=== PATIENT | female | born 1950 | race Caucasian/White ===

== ENCOUNTER 2020-12-07 14:12 | Inpatient (IN) ==
[2020-12-07] MEDS ORDERED: HEPARIN (PORCINE) 1000 UNIT/ML 10 ML (CATH LAB USE ONLY) ONE ×2 (14:15→15:26)
[2020-12-07] MEDS ORDERED: NITROGLYCERIN/D5W 100MCG/ML 20ML SYR ONE (14:15)
[2020-12-07] MEDS ORDERED: niCARdipine HCL INJ 2.5 MG/ML 10 ML AMP ONE (14:15)
[2020-12-07] MEDS ORDERED: MIDAZOLAM HCL 1 MG/ML 2ML VIAL ONE (14:15)
[2020-12-07] MEDS ORDERED: fentaNYL citrate 100 MCG/2 ML VIAL ONE (14:15)
--- NOTE | 2020-12-07 14:26 | Emergency Department Note ---
History of Present Illness General Chief complaint: Heart Alert Time Seen by Provider: 12/07/20 14:16 Source: patient, family ( at the bedside) and RN notes reviewed Mode of arrival: EMS Limitations: no limitations History of Present Illness Provider complaint: Chest pain This patient is a 70-year-old female who presents to the emergency department by ambulance after complaining of dizziness, lightheadedness and chest pressure. Patient does have a history of heart attack and does have a stent placed. She is also had a TAVR. She has a history of Hodgkin's lymphoma as well as breast cancer but does not currently receive treatment. Patient states she is feeling improved after receiving aspirin and IV fentanyl in the ambulance. She complains of a pain a 0-1 at this time. A heart alert had been called by my medical command. Patient denies any recent illness, fever, cough, abdominal pain, vomiting or diarrhea. Home Medications Medication Instructions Recorded Confirmed Type ASPIRIN (ASPIRIN CHEWABLE) 81 mg PO DAILY #0 tab 12/10/11 History CALCIUM CARBONATE-VITAMIN D W/ 1 tab PO BID #0 tab 12/10/11 History (CALTRATE 600 PLUS) CLOPIDOGREL BISULFATE (PLAVIX) 75 mg PO DAILY #0 tab 12/10/11 History Doxepin (Doxepin *) 10 mg PO HS #0 cap 12/10/11 History IRON 25MG 1 tab PO DAILY #0 12/10/11 History SIMVASTATIN (Zocor) 40 mg PO QPM #0 tab 12/10/11 History CHOLECALCIFEROL (VITAMIN D 1000 2,000 inter.unit PO DAILY #0 cap 09/25/13 History UNIT) Famotidine (Pepcid) 20 mg PO BID #0 tab 09/25/13 History LOSARTAN POTASSIUM (COZAAR) 25 mg PO DAILY #0 tab 09/25/13 History Metoprolol Succ (Toprol Xl) 50 mg PO DAILY #30 tab 09/25/13 History (Toprol-Xl) Nitroglycerin (Nitrostat) 0.4 mg UT PRN #0 btl 09/25/13 History Allergies Allergy/AdvReac Type Severity Reaction Status Date / Time No Known Allergies Allergy Unverified 12/10/11 00:58 Past Med/Surg History Medical History Anemia Atrial fibrillation DCIS (ductal carcinoma in situ) of breast Diastolic heart failure Hodgkin's disease Osteopenia Pleural effusion Radiation fibrosis of lung Surgical History H/O splenectomy S/P right mastectomy S/P splenectomy Stented coronary artery Social History Smoking Status: Unknown if ever smoked Preferred Language: Malagasy Feels Safe at Home: Yes Review of Systems See HPI for pertinent positives & negatives. and A total of 10 systems reviewed and were otherwise negative Physical Exam Vital Signs Vital Signs - 24 hr 12/07/20 14:12 12/07/20 14:16 Pulse Rate 76 76 Pulse Rhythm Regular Pulse Strength Normal Respiratory Rate 20 Respiratory Effort / Characteristics Non-Labored Spontaneous Respiratory Depth Normal Respiratory Pattern Regular Blood Pressure 140/48 L Blood Pressure Mean 78 Blood Pressure Position Sitting Pulse Oximetry 96 96 Oxygen Delivery Method Room Air Room Air Sepsis Recent Fever Within 48 Hours No Sepsis New/Unexplained Change in Mental Status No Sepsis Action Taken by Nursing No Action Required Vital signs reviewed. General: Chronically ill-appearing 70 yo female, in no significant distress. Thin and frail HEENT: No scleral icterus, PERRLA, neck supple. Atraumatic. Cardiovascular: Regular rate and rhythm, occasional irregularity, no extra sounds. Pulmonary: Coarse breath sounds to auscultation bilaterally, normal work of breathing. Abdomen: Soft, nontender, nondistended, positive bowel sounds. Musculoskeletal: Atraumatic, no peripheral edema. Neurologic: Patient awake alert and oriented x 3. Skin: Warm, dry, no rash Medical Decision Making Differential Diagnosis Cardiac ischemia, aortic dissection, pulmonary embolism, pneumothorax, pneumonia, pericarditis, myocarditis, esophageal rupture, GERD, cholecystitis, pancreatitis, musculoskeletal, as well as other pathologies. Medical Records Attestation: I reviewed the patient's medical records. Home Medications Current Medication List: was personally reviewed by me Laboratory Data Attestation: I reviewed the patient's lab results. Lab Results 12/07/20 Range/Units 14:26 COVID-19 Eval Order Covid19 at [facility] ECG Data Attestation: I personally reviewed and interpreted this ECG as follows: Indication: + chest pain Rate (beats per minute): 76 Rhythm: + sinus rhythm and + other (Likely sinus pause) ECG Intervals/blocks: + First degree AV block and + Normal QT-c ECG [place]: + Normal ECG ST segments: + ST elevation (Inferior ST elevation) and + Nonspecific ST abnormalities (Reciprocal change in the anterior leads) ECG Findings: no PACs or no PVCs Blood Pressure Blood Pressure Findings: Elevated blood pressure Blood Pressure Disposition: further management by hospitalist BROWN Narrative This patient was evaluated and appeared to be in no significant distress. IV access was obtained and laboratory work was drawn. An order for cardiac monitoring was placed and the patient is noted to be in a sinus rhythm with a first-degree AV block at 76 bpm. The patient had been given aspirin and IV fentanyl prior to arrival which did alleviate her discomfort. She stated she was a 0-1 on the pain scale. EKG confirms an inferior ST elevation CT. Heart alert had been called prior to arrival and Dr. Mckeon from interventional cardiology did arrive at the bedside to evaluate the patient. Patient was taken to the catheterization lab for definitive management. Patient and were aware of the plan and agreed. Impression & Plan STEMI (ST elevation myocardial infarction) Discharge Plan Visit Data Chief Complaint: Heart Alert Discharge Problem: STEMI (ST elevation myocardial infarction) Discharge Instructions Interventions: ED Discharge Assessment Last Done: 12/07/20 14:27
--- NOTE | 2020-12-07 14:32 | Pre Anesthesia Assessment ---
Date of Service December 07, 2020 Pre Sedation Assessment Cardiovascular RRR, no murmur, no edema Respiratory normal respiratory effort, lungs clear to auscultation Pre-Sedation Airway Assessment Smoking Status: Unknown if ever smoked Hx Sleep Apnea: No Hx Difficult Intubation: No Short, Thick Neck: No Thyromental Distance: > or= 3.5 Finger Breadths Oral Cavity: + WNL Mallampati Class: III ASA: ASA4 Procedure Planning Contraindications for Sedation: none Current Medications Reviewed: Yes Notes The planned sedation has been discussed with the patient. Informed Consent was obtained. I have identified the patient, determined the appropriateness of sedation and have assessed the patient immediately prior to the procedure. All medicine(s) and interventions are by my order.
--- NOTE | 2020-12-07 14:36 | Cardiology Consultation ---
Date of Consultation December 07, 2020 Assessment & Plan (1) STEMI (ST elevation myocardial infarction): Presentation consistent with inferior STEMI and recommend proceeding with emergent cardiac catheterization and likely primary PCI. No apparent contraindications to procedure. Discussed risks, benefits, alternatives of procedure with patient and they are willing to proceed. Further recommendations pending findings of coronary angiography. History of Present Illness Attending Physician: Otis Mckeon MD History of Present Illness 70-year-old woman here with acute chest pain and ECG concerning for acute MS. Patient seen emergently in the ED after heart alert activated en route. Past cardiac history remarkable for coronary artery disease post multiple PCI to RCA (2011 2 overlapping Xience TODD to proximal/mid RCA at [facility], 2014 single resolute TODD to proximal RCA), severe aortic stenosis post 26 mm evolute CoreValve 03/2015 at [facility]. Cardiac risk factors include hypertension, dyslipidemia. Other medical issues include breast cancer post resection, GERD, iron deficiency anemia. Reports feeling unwell yesterday evening for approximately an hour. Went to bed and felt better this morning in usual state of health. This afternoon again started to feel unwell followed by chest pressure. Symptoms lasted approximately an hour before EMS called. ECG in the field showed sinus rhythm with inferior ST elevations. Largely chest pain-free at time of arrival. Hemodynamically stable. Inferior ST elevations persisted on hospital ECG. Allergies Allergy/AdvReac Type Severity Reaction Status Date / Time No Known Allergies Allergy Unverified 12/10/11 00:58 Home Medications Medication Instructions Recorded Confirmed Type ASPIRIN (ASPIRIN CHEWABLE) 81 mg PO DAILY #0 tab 12/10/11 History CALCIUM CARBONATE-VITAMIN D W/ 1 tab PO BID #0 tab 12/10/11 History (CALTRATE 600 PLUS) CLOPIDOGREL BISULFATE (PLAVIX) 75 mg PO DAILY #0 tab 12/10/11 History Doxepin (Doxepin *) 10 mg PO HS #0 cap 12/10/11 History IRON 25MG 1 tab PO DAILY #0 12/10/11 History SIMVASTATIN (Zocor) 40 mg PO QPM #0 tab 12/10/11 History CHOLECALCIFEROL (VITAMIN D 1000 2,000 inter.unit PO DAILY #0 cap 09/25/13 History UNIT) Famotidine (Pepcid) 20 mg PO BID #0 tab 09/25/13 History LOSARTAN POTASSIUM (COZAAR) 25 mg PO DAILY #0 tab 09/25/13 History Metoprolol Succ (Toprol Xl) 50 mg PO DAILY #30 tab 09/25/13 History (Toprol-Xl) Nitroglycerin (Nitrostat) 0.4 mg UT PRN #0 btl 09/25/13 History Patient History Medical History Anemia Atrial fibrillation DCIS (ductal carcinoma in situ) of breast Diastolic heart failure Hodgkin's disease Osteopenia Pleural effusion Radiation fibrosis of lung Surgical History H/O splenectomy S/P right mastectomy S/P splenectomy Stented coronary artery Social History Smoking Status: Never smoker Second Hand Exposure: No; Do You Dip or Chew Tobacco: No; Tobacco Cessation Education Requested by Patient: No Hx Alcohol Use: No Hx Substance Use: No Preferred Language: Nauruan Cathode Builder Required: No Beliefs That Will Affect Care: None Current Living Situation: Spouse Other Information That Helps Us Care for You: No Feels Safe at Home: Yes Safety Concerns: Feels Safe At This Time Review of Systems Review of Systems: Not completed in the setting of emergent situation Physical Exam Physical Exam: General: Comfortable HEENT: Sclerae anicteric Lungs: Clear to auscultation bilaterally Cardiac: Regular rate and rhythm, crisp bioprosthetic closure Vascular: 2+ radial Abdomen: Soft, nontender Extremities: Well perfused, no peripheral edema Neuro: Nonfocal Psych: Alert orient x3, normal affect and mood PG Care Time/CCT Total # of Minutes Spent Total Time Spent with Patient: Total time spent is greater than 50% in coordination of care (as documented) at patient's floor/unit and/or counseling patient: Coding Level of Care Code 37432 Initial Inpt Care Lvl 3 Diagnoses STEMI (ST elevation myocardial infarction) I21.3
[2020-12-07 15:09] LABS: Basophils # (auto) 0.09 K/uL (0-0.2); Basophils % (auto) 0.8 %; Eosinophils # (auto) 0.27 K/uL (0-0.5); Eosinophils % (auto) 2.3 %; Hematocrit (blood only) 31.2 % (37-47); Hemoglobin 9.6 g/dL (12.0-16.0); Immature Granulocytes # (auto) 0.02 K/uL (0.00-0.02); Immature Granulocytes % (auto) 0.2 %; Lymphocytes # (auto) 1.61 K/uL (1.2-3.4); Lymphocytes % (auto) 13.5 %; Mean Corpuscular Hemoglobin 28.3 pg (25-34); Mean Corpuscular Hgb Conc 30.8 g/dL (32-36); Monocytes # (auto) 0.67 K/uL (0.11-0.59); Monocytes % (auto) 5.6 %; Neutrophils # (auto) 9.23 K/uL (1.4-6.5); Neutrophils % (auto) 77.6 %; Platelet Count 382 K/uL (130-400); RDW Coefficient of Variation 14.1 % (11.5-14.5); RDW Standard Deviation 47.6 fL (36.4-46.3); Red Blood Count 3.39 M/uL (4.2-5.4); White Blood Count 11.89 K/uL (4.8-10.8)
[2020-12-07 15:17] LABS: Alanine Aminotransferase 25 U/L (12-78); Albumin Level 3.2 gm/dl (3.4-5.0); Aspartate Aminotransferase 24 U/L (15-37); BUN Creatinine Ratio 24.8 (10-20); Blood Urea Nitrogen 24 mg/dl (7-18); Calcium 9.2 mg/dl (8.5-10.1); Carbon Dioxide 26 mmol/L (21-32); Chloride 108 mmol/L (98-107); Creatinine Clr Calc Pharmacy 40.8 ml/min; Est GFR (African American) 67.3 ml/min; Glucose 150 mg/dl (70-99); Lipase 246 U/L (73-393); Magnesium 1.9 mg/dl (1.8-2.4); Potassium 4.3 mmol/L (3.5-5.1); Sodium 136 mmol/L (136-145)
[2020-12-07 15:24] LABS: Partial Thromboplastin Ratio 0.8; Prothrombin Time 9.8 Seconds (9.0-12.0)
[2020-12-07] MEDS ORDERED: NOREPINEPHRINE BITARTRATE 1 MG/ML 4 ML VIAL (CATH LAB USE ONLY) ONE (15:24)
[2020-12-07] MEDS ORDERED: DOPamine 400MG / 250ML D5W (Cath Lab Use ONLY) ONE (15:24)
[2020-12-07 15:28] LABS: Albumin Globulin Ratio 0.8 (0.9-2); Alkaline Phosphatase 55 U/L (45-117); Bilirubin,Total 0.3 mg/dl (0.2-1); Creatine Kinase 67 U/L (26-192); Globulin 3.9 gm/dl (2.5-4.0); Total Protein 7.1 gm/dl (6.4-8.2); Troponin I < 0.015 ng/ml (0-0.045)
[2020-12-07 15:36] LABS: Partial Thromboplastin Time < 20.0 Seconds (21.0-31.0)
[2020-12-07] MEDS ORDERED: CLOPIDOGREL BISULFATE 300 MG TAB ONE (16:31)
[2020-12-07] MEDS ORDERED: NITROGLYCERIN SL 0.4 MG/TAB TAB SL PRN (17:05)
[2020-12-07] MEDS ORDERED: ACETAMINOPHEN 325 MG TAB PO PRN (17:05)
[2020-12-07] MEDS ORDERED: ICU PROTOCOL FOR HYPERGLYCEMIA PRN (17:10)
--- NOTE | 2020-12-07 17:17 | Post Anesthesia Assessment ---
Date of Service December 07, 2020 Post Sedation Assessment Vital Signs Temp Pulse Pulse Resp BP BP Pulse Ox 12/07/20 17:03 97.3 F L 76 20 122/49 L 96 12/07/20 14:16 76 96 12/07/20 14:12 76 20 140/48 L 96 Recovery Score Activity: Moves 4 extremities Respiration: Deep Breath/Cough Circulation: +/-20% PreAnes Value Consciousness: Fully Awake Oxygen Saturation: O2 needed for >90% Discharge Sedation Level of Care: Fast Track Phase II Post Sedation Plan On clinical assessment, the patient appears to have tolerated the sedation without complications. Patient is recovering as anticipated. Patient will continue to be monitored by nursing and may be discharged when sedation discharge criteria are met per below protocol. Upon Completions of procedure up to 15 minutes continue every 5 minute vital signs and the P.A.R. score; then discharge to a Phase I or Fast Track to Phase II per the following guidelines: * Discharge Patient to appropriate Phase II area if PAR is 8 or greater or return to pre- procedure baseline. The post - procedure orders will be as directed. * If PAR score is less than 8 or not return to pre-procedure baseline then patient will follow Phase I monitoring till PAR is reached for Phase II. The Phase I may be done in procedure room or may call to secure a Phase I area. * If naloxone or flumazenil are used for reversal, hold in Phase I for continued monitoring from when last reversal dose was given for a minimum of 60 minutes or longer pending the nurse and/or physician discretion of patient condition before discharge to Phase II. Please call the Sedation Physician to re-evaluate and complete post-note for discharge to Phase II area. Do NOT discharge from procedure sedation or Phase 1 until post- sedation evaluation note is complete by procedure /sedation MD Sedation Discharge Instructions to be given to the patient at discharge to home.
--- NOTE | 2020-12-07 17:31 | Cardiac Catheterization ---
[facility] Data: Assisted Living Associate Cardiac Status Clinical evaluation leading to the procedure CAD Presenation: STEMI Anginal Classification: CCS IV Heart Failure: No Cardiogenic Shock within 24 Hours: No Cardiac Arrest within 24 Hours: No Imaging Studies Past 6 Months: No Stress Studies Past 6 Months: No Left Ventricular Angiography EF (%): 50-55 Wall Motion: Inferior Aortography Aortic Regurgitation: None Diagnostic Physicians Name: Otis Mckeon MD Status: Emergency Closure Device Percutaneous Entry Location: Radial Closure Device: Radial Band Recommendations: PCI without planned CABG PCI Indication: Immediate PCI for STEMI First Noted: First EKG Lesion Segment Name: proximal RCA Culprit Artery: Yes Stenosis Prior to Rx (%): 100 Chronic Total Occlusion: No IVUS: No FFR: No Pre-Procedure STEVE Flow: 0 Previously Treated Lesion: No Lesion Complexity: High/C Lesion Length (mm): 30 Thrombus Present: Yes Bifurcation Lesion: No Guidewire Across Lesion: Stenosis Post-Procedure (%): 0 Post-Procedure STEVE Flow: 3 Devices(s) Deployed: Yes Yes Intraprocedure Events Significant Disection: No Perforation: No Cardiac Cath Procedure Full Procedure Date December 07, 2020 Pre-Procedure Diagnosis Pre-Procedure Diagnosis: STEMI AUC Score AUC Score: 9 Post-Procedure Diagnosis Post-Procedure Diagnosis: Severe CAD and Successful PCI Procedure(s) Performed Procedure(s) Performed: Coronary Angiography, Left Heart Cath and Drug Eluting Stent Printed Circuit Board Panels Developer Otis Mckeon MD Right Of Way Buyer(s) [place] Estimated Blood Loss Estimated Blood Loss: 15 Medication(s) Medication(s): Clopidogrel, Fentanyl, Heparin, Lidocaine 1%, Nicardipine, Nitroglycerin and Versed Summary of Findings Indication: STEMI/Heart Alert History of prior PCI to RCA (2 TODD 2011, 1 TODD 2014) and prior TAVR with CoreValve. Here today with approximately 1 hour of chest pain and inferior ST elevations on ECG. Access: 6 Fr right radial artery Catheters: Leftdiagnostic JL 3.5 (unable to successfully cannulate). RightJR4, JL 3.5, AR-1. Able to successfully cannulate with MPA and guideliner Findings: Attempt made to cannulate left main initially unsuccessful with JL 3.5. Further attempts at selective imaging deferred post PCI due to amount of contrast administered. Nonselective images showed ossified, normal caliber left main that was widely patent. Medium caliber LAD widely patent to the apex. Small circumflex widely patent. RCA -dominant, downward takeoff, 50% ostial disease, 100% proximal occlusion within prior stents with significant thrombus extending throughout mid segment. LVEDP -5 LVEF 50 to 55% with inferior hypokinesis Post procedure aortography, no dissection, no significant AI -- PCI -- Antithrombotic therapy: Heparin, clopidogrel Procedure: RCA eventually cannulated with MPA guide and telescope support catheter V Belt Coverer 50 wire passed across lesion into distal vessel Mid RCA lesion predilated with 2.0 compliant balloon Initial attempts to stent were unsuccessful and mid RCA stents predilated with 3.0 balloon Distal aspect of mid RCA stent with residual stenosis and 3.0 x 12 mm [place] placed to mid RCA overlapping distal aspect of prior stents Stent post-dilated with stent balloon IC vasodilators administered for spasm Noted to have thrombus emboli to small right PLB RPLB rewired with corporation pilot 50 wire and gently ballooned with a 2.0 balloon. Minimal flow reestablished into small PLB. Wire removed and a post procedure images appear to be significant, flow-limiting stenosis at RCA ostium RCA recannulated with MPA guide, rewired with corporation pilot 50 wire. RCA ostium/proximal segment dilated with 2.5 balloon Additional 2.75 x 15 mm Nitin drug-eluting stent placed almost at ostium to proximal segment overlapping proximal aspect of prior stents. Stent postdilated with stent balloon to high atmospheres. Post procedure STEVE 3 flow, stents well expanded with minimal residual stenosis. Limited flow in small right PLB but patient chest pain-free. Arterial Closure: TR band Summary: 1. Inferior STEMI/100% proximal to mid RCA occlusion (very late stent thrombosis). 2. Minimal nonculprit vessel disease on nonselective imaging 3. Preserved LV function with inferior hypokinesis and normal intracardiac filling pressure. 4. Successful PCI of ostium to proximal RCA with 2.75 x 15 mm Nitin TODD overlapping proximal aspect of prior stent. 5. Successful PCI of latemid RCA with 3.0 x 12 mm Nitin TODD overlapping with distal aspect of prior mid RCA stent. Recommendations: Admit to ICU for continued monitoring Loaded with clopidogrel 600 mg in cath Continue dual-antiplatelet therapy for at least 1 year, consider extended therapy in the setting of overlapping stents. Trend troponins until peak, Check Echo Uptitrate beta-adolfo/ARB as BP allows High-dose statin Consult cardiac Rehab Hemodynamics Rest Ao:: 107/42/69 Final Ao: 144/52/88 LV: 108/5 Recommendations Recommendations: PCI without planned CABG Specimens Specimens: None Radiation Exposure (mGy) 2440 Contrast (mls) 160 Drains Drains: None Anesthesia Moderate [id number] Procedural Complication(s) None Disposition ICU I attest to the content of the Intraoperative Record and any orders documented therein. Any exceptions are noted below. [facility] Card Cath Procedure Codes Cardiac Catheterization Procedure 1: Cardiovascular Cath Procedures: 21024 Coronaries and LHC (+/-LV) Moderate Sedation Procedure 1: Sedation/Anesthesia: 20542 Mod Sedation by the same physician;Init15 Min Child Age 5 & Up Procedure 2: Sedation/Anesthesia: 02254 Mod Sedation by the same physician; Ea [id number] Minutes Stenting Procedure 1: Cardiovascular Stent Procedures: 61012 Perc transluminal revascularization of acute sub/total occl, aMI PG Care Time/CCT Total # of Minutes Spent Total Time Spent with Patient: Total time spent is greater than 50% in coordination of care (as documented) at patient's floor/unit and/or counseling patient:
[2020-12-07] MEDS: ONDANSETRON INJ 2 MG/ML 2 ML VIAL IV PRN (17:48)
[2020-12-07] MEDS: SODIUM CHLORIDE 0.9% 1000ML 1,000 ML IV SCH (17:50)
--- NOTE | 2020-12-07 18:02 | History & Physical Report ---
Date of Service December 07, 2020 Assessment & Plan (1) CAD (coronary artery disease): (2) STEMI (ST elevation myocardial infarction): Plan: -Admit to ICU -Patient presenting from home with reports of chest pain -Found to have acute ST elevations in the inferior leads, heart alert called and patient taken to [facility] emerg[facility] -History of CAD -TODD to RCA x 2 in 2014 -Patient was found to have RCA 100% proximal occlusion within prior stents with significant thrombus extending throughout mid segment and minimal nonculprit vessel disease. She received TODD x 2 to proximal and mid RCA. -TR band in place to right wrist, fingers cool to touch and blue discoloration noted to index finger, patient reports mild numbness, radial pulse palpable but weak - Dr. Mckeon notified -Resting echo -Aspirin, Plavix, statin, beta-adolfo, ARB (3) HTN (hypertension): Plan: -BP controlled -Home metoprolol increased to 25 mg twice daily and lisinopril changed to losartan by interventional cardiology (4) S/P TAVR (transcatheter aortic valve replacement): Plan: -in 2014 (5) DVT prophylaxis: Plan: -SCDs Admission and Anticipated Discharge Date Admission Date: December 07, 2020 History of Present Illness Chief Complaint: Chest pain Primary Care Provider: Tash Brownlee MD 70-year-old female with PMH CAD s/p TODD to RCA x 2 in 2014, aortic stenosis s/p TAVR, remote history of Hodgkin's lymphoma, remote history of breast cancer, chronic diastolic CHF, and other problems listed below who presents the ED for evaluation of chest pain. Patient reports that she was tosha some vegetables when she developed a midsternal chest pain. Reports associated nausea and diaphoresis. EMS was called and patient was brought to the ED for further evaluation. EKG showed inferior ST elevations. Heart alert was called and patient was taken to the [facility] emergently. Patient was found to have RCA 100% proximal occlusion within prior stents with significant thrombus extending throughout mid segment and minimal nonculprit vessel disease. She received TODD x 2 to proximal and mid RCA. Patient was evaluated in ICU post procedure. She reports that she is currently chest pain-free. Patient reports she felt very fatigued last evening. Otherwise has been feeling well recently. No other recent illnesses, fevers, chills. Denies shortness of breath. No lightheadedness, dizziness, syncopal event. Reports one episode of vomiting in the ambulance, no abdominal pain or diarrhea. Denies urinary symptoms. Allergies Allergy/AdvReac Type Severity Reaction Status Date / Time No Known Allergies Allergy Unverified 12/10/11 00:58 Home Medications Medication Instructions Recorded Confirmed Type ascorbic acid (vitamin C) 500 mg 500 mg PO DAILY 12/07/20 12/07/20 History tablet (Vitamin C) aspirin 81 mg tablet 81 mg PO DAILY 12/07/20 12/07/20 History cholecalciferol (vitamin D3) 25 25 mcg PO DAILY 12/07/20 12/07/20 History mcg (1,000 unit) tablet (Vitamin D3) cyanocobalamin (vitamin B-12) 1,000 mcg PO DAILY 12/07/20 12/07/20 History 1,000 mcg tablet doxepin 10 mg capsule 10 mg PO HS 12/07/20 12/07/20 History ferrous sulfate 325 mg (65 mg 325 mg PO DAILY 12/07/20 12/07/20 History iron) tablet lisinopril 20 mg tablet 20 mg PO DAILY 12/07/20 12/07/20 History metoprolol succinate 25 mg 25 mg PO DAILY 12/07/20 12/07/20 History tablet,extended release 24 hr simvastatin 40 mg tablet 40 mg PO HS 12/07/20 12/07/20 History Past Med/Surg History Medical History (Updated 12/07/20 @ 18:15 by JOSE G Urrutia) CAD (coronary artery disease) 2015-TODD to RCA x 2 DCIS (ductal carcinoma in situ) of breast Diastolic heart failure Hodgkin's disease HTN (hypertension) Malignant neoplasm of female breast (Unknown) "right breast 1989 apparently stage I disease mastectomy, no XRT, chemo, hormonal Rx " Osteopenia Radiation fibrosis of lung Surgical History (Updated 12/07/20 @ 18:21 by JOSE G Urrutia) H/O bilateral mastectomy H/O splenectomy S/P TAVR (transcatheter aortic valve replacement) Family History Mother Kidney disease Social History Smoking Status: Never smoker Second Hand Exposure: No; Do You Dip or Chew Tobacco: No; Tobacco Cessation Education Requested by Patient: No Hx Alcohol Use: No Hx Substance Use: No Preferred Language: Thai 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 Davis's addendum for full physical exam Musculoskeletal: TR band in place to right wrist, fingers cool to touch and blue discoloration noted to index finger, patient reports mild numbness, radial pulse palpable but weak Results & Data Results & Data ([facility]) Vital Signs (Past 12 Hours) Vital Signs Temp Pulse Pulse Resp BP BP Pulse Ox 12/07/20 17:28 77 21 116/52 L 98 12/07/20 17:13 77 22 125/58 L 95 12/07/20 17:03 36.3 C L 76 20 122/49 L 96 12/07/20 14:16 76 96 12/07/20 14:12 76 20 140/48 L 96 Laboratory Results Short CBC 12/07/20 Range/Units 14:18 WBC 11.89 H (4.8-10.8) K/uL Hgb 9.6 L (12.0-16.0) g/dL Hct 31.2 L (37-47) % Plt Count 382 (130-400) K/uL BMP 12/07/20 14:18 Sodium 136 Potassium 4.3 Chloride 108 H Carbon Dioxide 26 BUN 24 H Creatinine 0.98 Glucose 150 H Calcium 9.2 Cardiac Enzymes 12/07/20 Range/Units 14:18 Total Creatine Kinase 67 (26-192) U/L CK-MB (CK-2) 2.0 (0.5-3.6) ng/ml Troponin I < 0.015 (0-0.045) ng/ml Liver Function 12/07/20 Range/Units 14:18 Total Bilirubin 0.3 (0.2-1) mg/dl AST 24 (15-37) U/L ALT 25 (12-78) U/L Alkaline Phosphatase 55 (45-117) U/L Albumin 3.2 L (3.4-5.0) gm/dl Code Status & VTE Plan VTE Prophylaxis Plan VTE Prophylaxis will be ordered: Yes Supervising Physician Co-Signing Physician Notes Patient is a 70-year-old female with history of coronary artery disease, aortic stenosis S/P TAVR, Hodgkin's lymphoma, diastolic heart failure and other medical problems presents with history of retrosternal chest pain, nonradiating, associated with diaphoresis, nausea. Patient was found to have ST elevation NM on EKG. Patient had an emergent cardiac catheterization which showed 100% proximal/mid RCA occlusion. Patient underwent successful PCI with 2 drug- eluting stents to ostium/proximal RCA, mid RCA. Patient is doing well post procedure. Chest pain completely resolved. Denies any nausea, vomiting, dyspnea, dizziness. Physical Exam: Vitals signs as noted above General Appearance:Moderately built and nourished, no apparent distress Head: normocephalic, Atraumatic Eyes: normal inspection, EOMI Neck: supple, Trachea midline Respiratory/Chest: Normal breath sounds, CTA, No accessory muscle use, +B/L Mastectomy Cardiovascular: S1, S2, No murmur Abdomen/GI:Soft, Non tender, Bowel sounds present Extremities/Musculoskeletal:normal inspection, no edema Neurologic/Psych:AAOX3, grossly no focal neurological deficits Skin: normal color, warm, Well healed post surgical scars STEMI S/P PCI Check resting echo Continue aspirin, Plavix, Lipitor Check lipid panel, HbA1c Continue metoprolol, losartan Appreciate Cardiology input I personally reviewed the record. Patient is interviewed and examined at bedside. Patient's care is coordinated with Ruthie Najera HIGH SCHOOL HISTORY TEACHER. Please refer to the documentation above for details of patient's presentation and for discussion of other issues. (1) STEMI (ST elevation myocardial infarction) Involved coronary artery: unspecified coronary artery Qualified Code(s): I21.3 - ST elevation (STEMI) myocardial infarction of unspecified site
--- NOTE | 2020-12-07 19:53 | Critical Care Consultation ---
Date of Consultation December 07, 2020 Assessment & Plan (1) STEMI (ST elevation myocardial infarction): Impression: 70-year-old female presents to the ICU following inferior STEMI status post successful PCI with TODD x2 to the RCA Neuro - [facility] ICU: Negative Cardiac - STEMIinferior ST elevations on initial EKG, now s/p TODD x2 to the proximal and mid RCA -Monitor in ICU overnight -Follow-up echo -ASA, Plavix, statin, beta-adolfo, ARB -Follow-up cardiology recommendations -Trend troponins to peak HTNcontinue MTP, losartan Respiratory - Currently maintaining oxygen saturation on room air GI - Heart healthy diet RENAL/LYTES - [] - Strict I's and O ENDO - No history of diabetes or thyroid disease ICU hyperglycemic protocol HEME - H&H stable, monitor routine CBC ID - No indication for infectious process at this time LINES/IV ACCESS - Peripheral IVs DVT PROPHYLAXIS - SCDs Thank you for allowing us to participate in the care of this patient. Please refer to my attending physician's documentation for any further recommendations. (2) CAD (coronary artery disease): (3) DVT prophylaxis: (4) HTN (hypertension): (5) S/P TAVR (transcatheter aortic valve replacement): (6) Osteoporosis: (7) Dyslipidemia: (8) GERD (gastroesophageal reflux disease): History of Present Illness Attending Physician: Stanislav Davis MD History of Present Illness Patient is a 70-year-old female with past medical history CAD s/p TODD to the RCA x2 in 2014, aortic stenosis s/p TAVR, remote history of Hodgkin's lymphoma, remote history of breast cancer s/p bilateral mastectomy, chronic diastolic heart failure, HTN, GERD, and radiation fibrosis of the lung. Patient presented to the emergency department via EMS this afternoon with symptoms of dizziness, chest pressure, nausea, and diaphoresis which started approximately an hour prior to arrival. She was noted to have inferior ST elevations in route on ECG. Heart alert was initiated patient was taken to the [facility] where she was found to have inferior STEMI with 100% occlusion of the mid RCA. She underwent successful PCI of ostium/proximal RCA x1 and successful PCI of the late mid RCA x1. Patient now presents to the ICU post cath for further monitoring and management. On arrival to the ICU the patient is alert and oriented and denies current chest pain, palpitations, dizziness, syncope, diaphoresis, shortness of breath, nausea or vomiting, abdominal pain, or swelling in hands and feet. Prior to this event she states that she was otherwise in her usual state of health and denies recent illness. Allergies Allergy/AdvReac Type Severity Reaction Status Date / Time No Known Allergies Allergy Unverified 12/10/11 00:58 Home Medications Medication Instructions Recorded Confirmed Type ascorbic acid (vitamin C) 500 mg 500 mg PO DAILY 12/07/20 12/07/20 History tablet (Vitamin C) aspirin 81 mg tablet 81 mg PO DAILY 12/07/20 12/07/20 History cholecalciferol (vitamin D3) 25 25 mcg PO DAILY 12/07/20 12/07/20 History mcg (1,000 unit) tablet (Vitamin D3) cyanocobalamin (vitamin B-12) 1,000 mcg PO DAILY 12/07/20 12/07/20 History 1,000 mcg tablet doxepin 10 mg capsule 10 mg PO HS 12/07/20 12/07/20 History ferrous sulfate 325 mg (65 mg 325 mg PO DAILY 12/07/20 12/07/20 History iron) tablet lisinopril 20 mg tablet 20 mg PO DAILY 12/07/20 12/07/20 History metoprolol succinate 25 mg 25 mg PO DAILY 12/07/20 12/07/20 History tablet,extended release 24 hr simvastatin 40 mg tablet 40 mg PO HS 12/07/20 12/07/20 History Patient History Medical History (Updated 12/07/20 @ 21:12 by JOSE G Jacques) CAD (coronary artery disease) 2014-TODD to RCA x 2 DCIS (ductal carcinoma in situ) of breast Diastolic heart failure Hodgkin's disease HTN (hypertension) Malignant neoplasm of female breast (Unknown) "right breast 1989 apparently stage I disease mastectomy, no XRT, chemo, hormonal Rx " Osteopenia Radiation fibrosis of lung Surgical History (Updated 12/07/20 @ 18:21 by JOSE G Urrutia) H/O bilateral mastectomy H/O splenectomy S/P TAVR (transcatheter aortic valve replacement) Family History Mother Kidney disease Social History Smoking Status: Never smoker Second Hand Exposure: No; Do You Dip or Chew Tobacco: No; Tobacco Cessation Education Requested by Patient: No Hx Alcohol Use: No Hx Substance Use: No Preferred Language: Turkish 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 Beliefs That Will Affect Care: None Current Living Situation: Spouse Other Information That Helps Us Care for You: No Feels Safe at Home: Yes Safety Concerns: Feels Safe At This Time Review of Systems Review of Systems: All systems reviewed & are unremarkable except as noted in HPI & below Physical Exam Constitutional: WD/WN, vitals as above Eyes: PERRL, conjunctivae normal, anicteric sclerae ENMT: external ear and nose normal, oropharynx normal Neck: trachea midline, no thyromegaly Respiratory: normal respiratory effort, lungs clear to auscultation Cardiovascular: RRR, no murmur, no edema Gastrointestinal (Abdomen): normal bowel sounds, soft, nontender, no hepatosplenomegaly Musculoskeletal: no cyanosis or clubbing, extremities motor strength 5/5 Skin: no rashes, warm and dry Neurologic: PERRL, EOMI, accommodation nl, no face palsy, no dysarthria Psychiatric: A+Ox3, euthymic affect Results & Data Results & Data ([facility]) Vital Signs (Past 12 Hours) Vital Signs Temp Pulse Pulse Resp BP BP Pulse Ox 12/07/20 18:44 91 H 28 H 141/47 H 96 12/07/20 18:28 93 H 21 80/62 L 99 12/07/20 18:14 36 C L 92 H 29 H 128/80 96 12/07/20 17:58 81 17 113/53 L 98 12/07/20 17:43 89 23 135/112 H 96 12/07/20 17:28 77 21 116/52 L 98 12/07/20 17:13 77 22 125/58 L 95 12/07/20 17:03 36.3 C L 76 20 122/49 L 96 12/07/20 14:16 76 96 12/07/20 14:12 76 20 140/48 L 96 Coding Level of Care Code 69208 Inpt Consult Level 3 Diagnoses CAD (coronary artery disease) I25.10 DVT prophylaxis Z29.9 HTN (hypertension) I10 S/P TAVR (transcatheter aortic valve replacement) Z95.2 Osteoporosis M81.0 Dyslipidemia E78.5 STEMI (ST elevation myocardial infarction) I21.3 Involved coronary artery: unspecified coronary artery GERD (gastroesophageal reflux disease) K21.9 (1) STEMI (ST elevation myocardial infarction) Involved coronary artery: unspecified coronary artery Qualified Code(s): I21.3 - ST elevation (STEMI) myocardial infarction of unspecified site
[2020-12-07] MEDS: METOPROLOL TARTRATE 25 MG TAB PO SCH (20:51)
[2020-12-07] MEDS: DOXEPIN HCL 10 MG CAPSULE PO SCH (20:51)
[2020-12-08] MEDS: SODIUM CHLORIDE 0.9% 1000ML 1,000 ML IV SCH (04:01)
[2020-12-08 05:03] LABS: Basophils # (auto) 0.04 K/uL (0-0.2); Basophils % (auto) 0.4 %; Eosinophils # (auto) 0.08 K/uL (0-0.5); Eosinophils % (auto) 0.9 %; Hematocrit (blood only) 31.2 % (37-47); Hemoglobin 9.5 g/dL (12.0-16.0); Immature Granulocytes # (auto) 0.02 K/uL (0.00-0.02); Immature Granulocytes % (auto) 0.2 %; Lymphocytes # (auto) 1.17 K/uL (1.2-3.4); Lymphocytes % (auto) 12.9 %; Mean Corpuscular Hgb Conc 30.4 g/dL (32-36); Mean Platelet Volume 10.2 fL (7.4-10.4); Monocytes # (auto) 0.76 K/uL (0.11-0.59); Monocytes % (auto) 8.4 %; Neutrophils # (auto) 7.02 K/uL (1.4-6.5); Neutrophils % (auto) 77.2 %; Platelet Count 327 K/uL (130-400); RDW Coefficient of Variation 14.3 % (11.5-14.5); RDW Standard Deviation 48.6 fL (36.4-46.3); Red Blood Count 3.39 M/uL (4.2-5.4); White Blood Count 9.09 K/uL (4.8-10.8)
[2020-12-08] MEDS: ONDANSETRON INJ 2 MG/ML 2 ML VIAL IV PRN (05:14)
[2020-12-08 05:28] LABS: BUN Creatinine Ratio 23.1 (10-20); Blood Urea Nitrogen 23 mg/dl (7-18); Calcium 8.8 mg/dl (8.5-10.1); Carbon Dioxide 24 mmol/L (21-32); Chloride 110 mmol/L (98-107); Creatinine Clr Calc Pharmacy 36.7 ml/min; Est GFR (African American) 64.9 ml/min; Glucose 109 mg/dl (70-99); Sodium 137 mmol/L (136-145)
[2020-12-08 05:41] LABS: Chol HDL Ratio 2; Cholesterol 120 mg/dl (0-200); HDL Cholesterol 60 mg/dl; LDL Cholesterol Direct 39 mg/dl; Phosphorus 2.8 mg/dl (2.5-4.9); Triglycerides 167 mg/dl (0-150); VLDL Cholesterol 33 mg/dl
[2020-12-08 07:28] LABS: Estimated Average Glucose 88 mg/dl; Hemoglobin A1C 4.7 % (4.5-5.6)
--- NOTE | 2020-12-08 08:59 | Critical Care Progress Note ---
Date of Service December 08, 2020 Assessment & Plan (1) STEMI (ST elevation myocardial infarction): Plan: Impression: 70-year-old female presents to the ICU following inferior STEMI status post successful PCI with TODD x2 to the RCA Neuro - [facility] ICU: Negative Cardiac - STEMIinferior ST elevations on initial EKG, now s/p TODD x2 to the proximal and mid RCA -Monitor in ICU overnight -Follow-up echo -ASA, Plavix, statin, beta-adolfo, ARB -Follow-up cardiology recommendations -Trend troponins to peak HTNcontinue MTP, losartan Respiratory - Currently maintaining oxygen saturation on room air GI - Heart healthy diet RENAL/LYTES - no issues at present - Strict I's and O ENDO - No history of diabetes or thyroid disease ICU hyperglycemic protocol HEME - H&H stable, monitor routine CBC ID - No indication for infectious process at this time LINES/IV ACCESS - Peripheral IVs DVT PROPHYLAXIS - SCDs Stable for transfer to the floor with telemetry. (2) CAD (coronary artery disease): (3) DVT prophylaxis: (4) HTN (hypertension): (5) S/P TAVR (transcatheter aortic valve replacement): (6) Osteoporosis: (7) Dyslipidemia: (8) GERD (gastroesophageal reflux disease): Admission and Anticipated Discharge Date Admission Date: December 07, 2020 Subjective No acute events overnight. Patient denies chest pain, fevers, chills or night sweats. 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 She is concerned whether she has another pleural effusion. She denies any shortness of breath. Review of Systems Review of Systems: All systems reviewed & are unremarkable except as noted in HPI & below Physical Exam Constitutional: WD/WN, vitals as above Eyes: PERRL, conjunctivae normal, anicteric sclerae ENMT: external ear and nose normal, oropharynx normal Neck: trachea midline, no thyromegaly Respiratory: normal respiratory effort, lungs clear to auscultation Cardiovascular: RRR, no murmur, no edema Gastrointestinal (Abdomen): normal bowel sounds, soft, nontender, no hepatosplenomegaly Musculoskeletal: no cyanosis or clubbing, extremities motor strength 5/5 Skin: no rashes, warm and dry Neurologic: PERRL, EOMI, accommodation nl, no face palsy, no dysarthria Psychiatric: A+Ox3, euthymic affect Results & Data Results & Data ([facility]) Vital Signs (Past 12 Hours) Vital Signs Temp Pulse Resp BP Pulse Ox 12/08/20 06:13 85 24 147/58 H 95 12/08/20 05:43 87 25 H 151/69 H 95 12/08/20 05:13 85 24 147/64 H 94 12/08/20 04:43 82 25 H 132/58 L 98 12/08/20 04:13 97.5 F L 83 24 147/69 H 97 12/08/20 03:43 84 24 153/63 H 96 12/08/20 03:13 83 23 133/56 L 96 12/08/20 02:43 81 24 129/60 95 12/08/20 02:13 83 24 129/66 94 12/08/20 01:43 84 27 H 127/58 L 97 12/08/20 01:13 82 23 130/51 L 96 12/08/20 00:43 82 22 116/59 L 95 12/08/20 00:13 81 24 113/48 L 95 12/08/20 00:00 82 12/07/20 23:43 80 25 H 114/45 L 100 12/07/20 23:13 131/61 12/07/20 22:43 83 23 140/64 97 12/07/20 22:13 97.5 F L 85 22 150/65 H 98 12/07/20 21:58 85 22 144/61 H 99 12/07/20 21:43 88 25 H 143/64 H 98 12/07/20 21:28 87 22 143/55 H 98 12/07/20 21:13 89 24 140/54 L 97 12/07/20 20:58 88 23 108/67 89 L vital signs, labs and imaging personally reviewed Coding Level of Care Code 22224 Subseq Hosp Care Lvl 2 Diagnoses STEMI (ST elevation myocardial infarction) I21.3 Involved coronary artery: unspecified coronary artery CAD (coronary artery disease) I25.10 DVT prophylaxis Z29.9 HTN (hypertension) I10 S/P TAVR (transcatheter aortic valve replacement) Z95.2 Osteoporosis M81.0 Dyslipidemia E78.5 GERD (gastroesophageal reflux disease) K21.9 (1) STEMI (ST elevation myocardial infarction) Involved coronary artery: unspecified coronary artery Qualified Code(s): I21.3 - ST elevation (STEMI) myocardial infarction of unspecified site
[2020-12-08] MEDS ORDERED: LOSARTAN POTASSIUM 25 MG TAB PO SCH (09:00)
[2020-12-08] MEDS: CLOPIDOGREL BISULFATE 75 MG TAB PO SCH (09:04)
[2020-12-08] MEDS: PANTOprazole 40 MG TAB PO SCH (09:04)
[2020-12-08] MEDS: CHOLECALCIFEROL 1,000 UNITS 25 MCG TAB PO SCH (09:04)
[2020-12-08] MEDS: METOPROLOL TARTRATE 25 MG TAB PO SCH ×2 (09:04→20:22)
[2020-12-08] MEDS: ATORVASTATIN 40 MG TAB PO SCH (09:04)
[2020-12-08] MEDS: ASPIRIN 81 MG ECTAB PO SCH (09:04)
[2020-12-08] MEDS: FERROUS SULFATE 325 MG TAB PO SCH (09:04)
[2020-12-08] MEDS: CYANOCOBALAMIN 500 MCG TABLET (VITAMIN B-12) PO SCH (09:05)
--- NOTE | 2020-12-08 12:10 | Cardiology Consultation ---
Date of Consultation December 08, 2020 Assessment & Plan (1) STEMI (ST elevation myocardial infarction): s/p PCI TODD x 2 to the RCA. Echocardiogram reveals mild inferior, inferoseptal hypokinesis, right ventricular chamber size and moderate diffuse right ventricular hypokinesis suggestive of RV involvement. EKG performed this morning reveals subtle residual inferior ST elevation in leads III and aVF, however much improved compared to the initial tracing performed prior to cardiac catheterization yesterday. Subtle ongoing lateral ST elevation noted. Nonobstructive disease noted in the left coronary system on nonselective angiography. LVEF 45 to 50%. Not volume overloaded on exam. Continue aspirin, clopidogrel, metoprolol tartrate, atorvastatin. (2) S/P TAVR (transcatheter aortic valve replacement): Echocardiogram reveals normal prosthetic function. (3) HTN (hypertension): Systolic blood pressure had been in the 140s to 150s overnight, most recent measurements have been 121/54 and 98/68. With noted concerns of low blood pressure, and also mild hyperkalemia, losartan has been held. Of note as an outpatient she is on lisinopril 20 mg daily. (4) Hyperkalemia: SHAUN/ARB, on hold given mild hyperkalemia, 5 mmol, repeat potassium level tomorrow. (5) Dyslipidemia: Continue atorvastatin. (6) Pleural effusion: History of nonmalignant recurrent right pleural effusion for which patient has had multiple thoracentesis procedures, both at [facility] , and [facility] in the past. Update CXR. History of Present Illness Attending Physician: Stanislav Davis MD History of Present Illness Poonamtyron Mckeon is a 70 year old female seen in general cardiology consultation per the request of JOSE G Urrutia to assume care given patient's presentation with an inferior STEMI. The patient typically follows as an outpatient with JOSE G Garland of [facility]. She presented yesterday 12/08/2020 with several hours of fleeting generalized weakness, without alina chest discomfort. She did note shortness of breath. Prehospital, EMS identified inferior ST segment elevation, and the "Heart Alert" protocol was activated after communication between EMS and the emergency department. The patient underwent emergent cardiac catheterization performed yesterday by Dr. Mckeon of interventional cardiology with findings of 50% ostial stenosis of the right coronary artery, and a 100% proximal occlusion within the prior stents with significant thrombus extending throughout the mid segment. The patient underwent complex PCI of the ostium RCA to proximal RCA and placement of a 2.75 x 15 mm Marion drug-eluting stent overlapping the proximal portion of the previously placed stent. Successful PCI of mid RCA with a 3 x 12 mm Marion drug-eluting stent t hat overlapped with the distal aspect of the prior mid RCA stent. Patient feels well post procedure. Telemetry overnight last night and thus far today reveals sinus rhythm in the 80s to 90s, with no ventricular arrhythmias. She denies any symptoms suggestive of angina. Problem List: 1. Hx of severe AV stenosis -s/p TAVR (#26mm Medtronic Evolute at [facility] in 2014) 2. CAD -s/p PCI w/ TODD-prox RCA (3.0x12mm Resolute TODD at [facility] in 12/2014) 3. Hx of Non-Hodgkins Lymphoma -s/p mantle radiation and splenectomy in 4. 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 Chronic anemia 6. Recurrent pleural effusions -s/p multiple Rt sided thoracenteses Allergies Allergy/AdvReac Type Severity Reaction Status Date / Time No Known Allergies Allergy Unverified 12/10/11 00:58 Home Medications Medication Instructions Recorded Confirmed Type ascorbic acid (vitamin C) 500 mg 500 mg PO DAILY 12/07/20 12/07/20 History tablet (Vitamin C) aspirin 81 mg tablet 81 mg PO DAILY 12/07/20 12/07/20 History cholecalciferol (vitamin D3) 25 25 mcg PO DAILY 12/07/20 12/07/20 History mcg (1,000 unit) tablet (Vitamin D3) cyanocobalamin (vitamin B-12) 1,000 mcg PO DAILY 12/07/20 12/07/20 History 1,000 mcg tablet doxepin 10 mg capsule 10 mg PO HS 12/07/20 12/07/20 History ferrous sulfate 325 mg (65 mg 325 mg PO DAILY 12/07/20 12/07/20 History iron) tablet lisinopril 20 mg tablet 20 mg PO DAILY 12/07/20 12/07/20 History metoprolol succinate 25 mg 25 mg PO DAILY 12/07/20 12/07/20 History tablet,extended release 24 hr simvastatin 40 mg tablet 40 mg PO HS 12/07/20 12/07/20 History Patient History Medical History (Updated 12/08/20 @ 12:18 by Que Morrison, DO) CAD (coronary artery disease) 2015-TODD to RCA x 2 DCIS (ductal carcinoma in situ) of breast Diastolic heart failure Hodgkin's disease HTN (hypertension) Malignant neoplasm of female breast (Unknown) "right breast 1989 apparently stage I disease mastectomy, no XRT, chemo, hormonal Rx " Osteopenia Radiation fibrosis of lung Surgical History (Updated 12/07/20 @ 18:21 by JOSE G Urrutia) H/O bilateral mastectomy H/O splenectomy S/P TAVR (transcatheter aortic valve replacement) Family History Mother Kidney disease Social History Smoking Status: Never smoker Second Hand Exposure: No; Hx Alcohol Use: No Hx Substance Use: No Preferred Language: [place] Citizen Communication Ability: Effective Handstitching Machine Collar Feller Required: No Beliefs That Will Affect Care: None marital status: Current Living Situation: Spouse Feels Safe at Home: Yes Assistive Devices: None Review of Systems Review of Systems: All systems reviewed & are unremarkable except as noted in HPI & below Physical Exam Physical Exam: Temp Pulse Resp BP Pulse Ox 36.8 C 95 H 23 98/68 L 97 12/08/20 08:00 12/08/20 10:04 12/08/20 10:04 12/08/20 10:04 12/08/20 10:04 Constitutional: WD/WN, vitals as above not ill appearing Respiratory: normal respiratory effort, lungs clear to auscultation Cardiovascular: RRR, no murmur, no edema Vessels: no JVD Right radial artery access site clean dry and intact, no hematoma. Neurologic: PERRL, EOMI, accommodation nl, no face palsy, no dysarthria Results & Data ([facility]) Vital Signs (Past 12 Hours) Vital Signs Temp Pulse Pulse Resp BP BP Pulse Ox 12/08/20 10:04 95 H 23 98/68 L 97 12/08/20 09:13 99 H 22 121/54 L 96 12/08/20 08:13 97 H 21 104/42 L 96 12/08/20 08:00 36.8 C 90 12/08/20 06:58 86 31 H 135/71 95 12/08/20 06:13 85 24 147/58 H 95 12/08/20 05:43 87 25 H 151/69 H 95 12/08/20 05:13 85 24 147/64 H 94 12/08/20 04:43 82 25 H 132/58 L 98 12/08/20 04:13 36.4 C L 83 24 147/69 H 97 12/08/20 03:43 84 24 153/63 H 96 12/08/20 03:13 83 23 133/56 L 96 12/08/20 02:43 81 24 129/60 95 12/08/20 02:13 83 24 129/66 94 12/08/20 01:43 84 27 H 127/58 L 97 12/08/20 01:13 82 23 130/51 L 96 12/08/20 00:43 82 22 116/59 L 95 12/08/20 00:13 81 24 113/48 L 95 Laboratory Results Cardiac Enzymes 12/07/20 12/07/20 12/08/20 Range/Units 14:18 23:39 04:38 AST 24 (15-37) U/L CK-MB (CK-2) 2.0 (0.5-3.6) ng/ml Troponin I < 0.015 28.100 H* 29.600 H* (0-0.045) ng/ml 12/08/20 Range/Units 10:25 AST (15-37) U/L CK-MB (CK-2) (0.5-3.6) ng/ml Troponin I 28.200 H* (0-0.045) ng/ml Coagulation 12/07/20 Range/Units 14:18 PT 9.8 (9.0-12.0) Seconds APTT < 20.0 L (21.0-31.0) Seconds Lipids 12/08/20 Range/Units 04:38 Triglycerides 167 H (0-150) mg/dl Cholesterol 120 (0-200) mg/dl HDL Cholesterol 60 mg/dl Cholesterol/HDL Ratio 2 CBC 12/07/20 12/08/20 Range/Units 14:18 04:38 WBC 11.89 H 9.09 (4.8-10.8) K/uL RBC 3.39 L 3.39 L (4.2-5.4) M/uL Hgb 9.6 L 9.5 L (12.0-16.0) g/dL Hct 31.2 L 31.2 L (37-47) % Plt Count 382 327 (130-400) K/uL Neut # (Auto) 9.23 H 7.02 H (1.4-6.5) K/uL Lymph # (Auto) 1.61 1.17 L (1.2-3.4) K/uL [place] # (Auto) 0.67 H 0.76 H (0.11-0.59) K/uL Eos # (Auto) 0.27 0.08 (0-0.5) K/uL Baso # (Auto) 0.09 0.04 (0-0.2) K/uL Comprehensive Metabolic Panel 12/07/20 12/08/20 Range/Units 14:18 04:38 Sodium 136 137 (136-145) mmol/L Potassium 4.3 5.0 D (3.5-5.1) mmol/L Chloride 108 H 110 H (98-107) mmol/L Carbon Dioxide 26 24 (21-32) mmol/L BUN 24 H 23 H (7-18) mg/dl Creatinine 0.98 1.01 (0.6-1.2) mg/dl Glucose 150 H 109 H (70-99) mg/dl Calcium 9.2 8.8 (8.5-10.1) mg/dl AST 24 (15-37) U/L ALT 25 (12-78) U/L Alkaline Phosphatase 55 (45-117) U/L Total Protein 7.1 (6.4-8.2) gm/dl Albumin 3.2 L (3.4-5.0) gm/dl Intake and Output 12/07/20 12/08/20 12/08/20 22:59 06:59 14:59 Intake Total 1000 / 1000 Output Total 0 / 0 Balance 0 / 1000 1000 / 1000 Intake: IV 1000 / 1000 Sodium Chloride 0.9% 1000ML 1, 1000 / 1000 000 ml @ 100 mls/hr IV .Q10H ELENA Rx#:[id number] Output: Urine 0 / 0 Other: # Unmeasured Voids 1 Weight 52.7 kg 52.7 kg 52.7 kg Weight Measurement Method [facility] Built in [facility] Patient Weight 12/09/20 06:59 Weight 52.7 kg (1) STEMI (ST elevation myocardial infarction) Involved coronary artery: unspecified coronary artery Qualified Code(s): I21.3 - ST elevation (STEMI) myocardial infarction of unspecified site
--- NOTE | 2020-12-08 13:42 | XRay Report ---
TWO VIEW CHEST CLINICAL HISTORY: Right pleural effusion. Myocardial infarction.. FINDINGS: PA and lateral chest radiographs are compared to study dated 09/26/2013 and correlated with c hest CT dated 09/25/2013. The heart is mildly enlarged. The pulmonary vasculature is noncongested. Post operative change and atherosclerotic calcification are noted in the thoracic aorta. A coronary artery stent is noted. Chronic interstitial thickening is similar to previous. There are right larger than left pleural effusions with bibasilar consolidation. Paramediastinal fibrosis is seen in the right up per lobe. There is no pneumothorax. The skeletal structures are osteopenic. Compression deformities a re noted in the thoracic spine. Surgical clips are seen throughout the upper abdomen. IMPRESSION: 1. Mild cardiomegaly with no radiographic evidence of congestive failure. 2. Right larger than left pleural effusions with bibasilar consolidation. This represents atelectasis and clinical correlation will be required.. ACT 112: Negative or not required by law. Electronically signed by: Ambrose Martino M.D. 12/08/2020 1:41 PM
--- NOTE | 2020-12-08 16:07 | Hospitalist Progress Note ---
Date of Service December 08, 2020 Assessment & Plan (1) STEMI (ST elevation myocardial infarction): Plan: STEMI S/P PCI TODD to RCA H/O CAD -ECHO: Mild concentric LVH. Inferior wall, inferoseptal wall hypokinetic. EF 40 to 45%. Right ventricle is mildly dilated. Right ventricular systolic function is moderately reduced. Patient has undergone previous transcatheter aortic valve implantation. No significant prosthetic regurgitation. Gradient is normal for this prosthetic aortic valve. Grade 2 diastolic dysfunction. -Nonobstructive disease of the left coronary system. Continue aspirin, Plavix, Lipitor, Metoprolol Resume losartan as able (currently held for concern for hyperkalemia) Appreciate Cardiology input Hypertension: Continue metoprolol Resume losartan as able S/P TAVR (transcatheter aortic valve replacement): In 2014 ECHO as above DVT Px; SCDs Admission and Anticipated Discharge Date Admission Date: December 07, 2020 Subjective Patient is seen and examined at bedside States doing well this morning Denies any chest pain, dyspnea, dizziness, nausea, abdominal pain Sitting in chair comfortably Offers no other complaints Review of Systems Review of Systems: All systems reviewed & are unremarkable except as noted in Subjective Physical Exam Physical Exam: Physical Exam: Vitals signs as noted above General Appearance:Moderately built and nourished, no apparent distress Head: normocephalic, Atraumatic Eyes: normal inspection, EOMI Neck: supple, Trachea midline Respiratory/Chest: Normal breath sounds, CTA, No accessory muscle use, +B/L Mastectomy Cardiovascular: S1, S2, No murmur Abdomen/GI:Soft, Non tender, Bowel sounds present Extremities/Musculoskeletal:normal inspection, no edema Neurologic/Psych:AAOX3, grossly no focal neurological deficits Skin: normal color, warm, Well healed post surgical scars Results & Data Results & Data ([facility]) Vital Signs (Past 12 Hours) Vital Signs Temp Pulse Pulse Resp BP BP Pulse Ox 12/08/20 10:04 95 H 23 98/68 L 97 12/08/20 09:13 99 H 22 121/54 L 96 12/08/20 08:13 97 H 21 104/42 L 96 12/08/20 08:00 36.8 C 90 12/08/20 06:58 86 31 H 135/71 95 12/08/20 06:13 85 24 147/58 H 95 12/08/20 05:43 87 25 H 151/69 H 95 12/08/20 05:13 85 24 147/64 H 94 12/08/20 04:43 82 25 H 132/58 L 98 12/08/20 04:13 36.4 C L 83 24 147/69 H 97 Laboratory Results Short CBC 12/08/20 Range/Units 04:38 WBC 9.09 (4.8-10.8) K/uL Hgb 9.5 L (12.0-16.0) g/dL Hct 31.2 L (37-47) % Plt Count 327 (130-400) K/uL BMP 12/08/20 04:38 Sodium 137 Potassium 5.0 D Chloride 110 H Carbon Dioxide 24 BUN 23 H Creatinine 1.01 Glucose 109 H Calcium 8.8 Cardiac Enzymes 12/07/20 12/08/20 12/08/20 Range/Units 23:39 04:38 10:25 Troponin I 28.100 H* 29.600 H* 28.200 H* (0-0.045) ng/ml (1) STEMI (ST elevation myocardial infarction) Involved coronary artery: unspecified coronary artery Qualified Code(s): I21.3 - ST elevation (STEMI) myocardial infarction of unspecified site
--- NOTE | 2020-12-08 16:10 | Electrocardiogram Report ---
Test Reason : Blood Pressure : / mmHG Vent. Rate : 076 BPM Atrial Rate : 083 BPM P-R Int : 000 ms QRS Dur : 086 ms QT Int : 358 ms P-R-T Axes : 000 037 110 degrees QTc Int : 402 ms Probable Sinus rhythm with 1st degree A-V block Inferoposterolateral injury current ACUTE CO / STEMI Consider right ventricular involvement in acute inferior infarct Abnormal ECG When compared with ECG of 26-SEP-2013 06:30, Significant changes have occurred Confirmed by Orlando Brown ([id number]) on 12/08/2020 4:10:22 PM Referred By: REFERRED SELF Confirmed By:Orlando Brown
--- NOTE | 2020-12-08 16:30 | Electrocardiogram Report ---
Test Reason : Blood Pressure : / mmHG Vent. Rate : 095 BPM Atrial Rate : 095 BPM P-R Int : 188 ms QRS Dur : 082 ms QT Int : 346 ms P-R-T Axes : 033 019 -28 degrees QTc Int : 434 ms Normal sinus rhythm Inferior infarct , age undetermined Abnormal ECG When compared with ECG of 07-DEC-2020 14:15, (unconfirmed) Serial changes of evolving Inferior infarct Present Confirmed by Orlando Brown ([id number]) on 12/08/2020 4:30:45 PM Referred By: REFERRED SELF Confirmed By:Orlando Brown
[2020-12-08] MEDS ORDERED: MELATONIN 3 MG TAB PO PRN (18:40)
[2020-12-08] MEDS: DOXEPIN HCL 10 MG CAPSULE PO SCH (20:21)
[2020-12-09] MEDS ORDERED: ALBUMIN 25% 12.5 GM/50 ML VIAL IV ONE (00:29)
[2020-12-09] MEDS ORDERED: ALBUT/IPRATROP 3MG/0.5MG NEB 3 ML VIAL NEB STA (01:09)
[2020-12-09 01:54] LABS: Basophils # (auto) 0.05 K/uL (0-0.2); Basophils % (auto) 0.5 %; Eosinophils # (auto) 0.17 K/uL (0-0.5); Eosinophils % (auto) 1.7 %; Hematocrit (blood only) 28.7 % (37-47); Hemoglobin 8.8 g/dL (12.0-16.0); Immature Granulocytes # (auto) 0.01 K/uL (0.00-0.02); Immature Granulocytes % (auto) 0.1 %; Lymphocytes # (auto) 1.28 K/uL (1.2-3.4); Lymphocytes % (auto) 13.1 %; Mean Corpuscular Hemoglobin 28.2 pg (25-34); Mean Corpuscular Hgb Conc 30.7 g/dL (32-36); Mean Platelet Volume 9.7 fL (7.4-10.4); Monocytes % (auto) 9.2 %; Neutrophils # (auto) 7.34 K/uL (1.4-6.5); Neutrophils % (auto) 75.4 %; Platelet Count 338 K/uL (130-400); RDW Coefficient of Variation 14.6 % (11.5-14.5); RDW Standard Deviation 49.3 fL (36.4-46.3); Red Blood Count 3.12 M/uL (4.2-5.4); White Blood Count 9.75 K/uL (4.8-10.8)
[2020-12-09 02:04] LABS: Partial Thromboplastin Ratio 0.8
[2020-12-09 02:11] LABS: BUN Creatinine Ratio 20.9 (10-20); Creatinine Clr Calc Pharmacy 31.1 ml/min; Est GFR (African American) 53.2 ml/min; Est GFR (Non-African American) 45.9 ml/min; Magnesium 1.9 mg/dl (1.8-2.4); Potassium 5.1 mmol/L (3.5-5.1)
[2020-12-09 02:16] LABS: Phosphorus 2.9 mg/dl (2.5-4.9)
[2020-12-09] MEDS ORDERED: MAGNESIUM SULFATE / D5W 1 GM/100 ML BAG IV ONE (02:32)
[2020-12-09 05:18] LABS: Basophils # (auto) 0.07 K/uL (0-0.2); Basophils % (auto) 0.8 %; Eosinophils # (auto) 0.12 K/uL (0-0.5); Eosinophils % (auto) 1.4 %; Hematocrit (blood only) 27.6 % (37-47); Hemoglobin 8.5 g/dL (12.0-16.0); Immature Granulocytes # (auto) 0.01 K/uL (0.00-0.02); Immature Granulocytes % (auto) 0.1 %; Lymphocytes # (auto) 1.15 K/uL (1.2-3.4); Lymphocytes % (auto) 13.1 %; Mean Corpuscular Hemoglobin 28.6 pg (25-34); Mean Corpuscular Hgb Conc 30.8 g/dL (32-36); Mean Corpuscular Volume 92.9 fL (80-100); Mean Platelet Volume 10.3 fL (7.4-10.4); Monocytes # (auto) 0.73 K/uL (0.11-0.59); Monocytes % (auto) 8.3 %; Neutrophils # (auto) 6.72 K/uL (1.4-6.5); Neutrophils % (auto) 76.3 %; Platelet Count 339 K/uL (130-400); RDW Coefficient of Variation 14.5 % (11.5-14.5); RDW Standard Deviation 49.4 fL (36.4-46.3); Red Blood Count 2.97 M/uL (4.2-5.4)
[2020-12-09 05:48] LABS: BUN Creatinine Ratio 23.5 (10-20); Calcium 9.1 mg/dl (8.5-10.1); Creatinine Clr Calc Pharmacy 34.3 ml/min; Est GFR (African American) 59.8 ml/min; Est GFR (Non-African American) 51.6 ml/min; Magnesium 2.6 mg/dl (1.8-2.4); Phosphorus 2.7 mg/dl (2.5-4.9); Potassium 5.3 mmol/L (3.5-5.1)
--- NOTE | 2020-12-09 08:15 | Hospitalist Progress Note ---
Date of Service December 09, 2020 Assessment & Plan (1) STEMI (ST elevation myocardial infarction): Plan: STEMI S/P PCI TODD to RCA H/O CAD -ECHO: Mild concentric LVH. Inferior wall, inferoseptal wall hypokinetic. EF 40 to 45%. Right ventricle is mildly dilated. Right ventricular systolic function is moderately reduced. Patient has undergone previous transcatheter aortic valve implantation. No significant prosthetic regurgitation. Gradient is normal for this prosthetic aortic valve. Grade 2 diastolic dysfunction. -Nonobstructive disease of the left coronary system. Continue aspirin, Plavix, Lipitor, Metoprolol Appreciate Cardiology input Hyperkalemia Received calcium gluconate, Lasix Monitor potassium levels Low potassium diet Anemia H/O Iron deficiency anemia, Anemia of Chronic disease Hb drop partly dilutional tyrell to IV fluids No H/O bleeding Normal reticulocyte count, folate, vitamin B12 levels Iron panel reviewed Haptoglobin pending Continue iron supplements Monitor CBC Hypertension: Continue metoprolol S/P TAVR (transcatheter aortic valve replacement): In 2014 ECHO as above DVT Px; SCDs Admission and Anticipated Discharge Date Admission Date: December 07, 2020 Subjective Patient is seen and examined at bedside States feeling well Denies any new complaints Denies any chest pain, dyspnea, dizziness, nausea, abdominal pain Review of Systems Review of Systems: All systems reviewed & are unremarkable except as noted in Subjective Physical Exam Physical Exam: Physical Exam: Vitals signs as noted above General Appearance:Moderately built and nourished, no apparent distress Head: normocephalic, Atraumatic Eyes: normal inspection, EOMI Neck: supple, Trachea midline Respiratory/Chest: Normal breath sounds, CTA, No accessory muscle use, +B/L Mastectomy Cardiovascular: S1, S2, No murmur Abdomen/GI:Soft, Non tender, Bowel sounds present Extremities/Musculoskeletal:normal inspection, no edema Neurologic/Psych:AAOX3, grossly no focal neurological deficits Skin: normal color, warm, Well healed post surgical scars Results & Data Results & Data ([facility]) Vital Signs (Past 12 Hours) Vital Signs Temp Pulse Resp BP Pulse Ox 12/09/20 06:06 84 26 H 116/60 93 12/09/20 05:36 83 24 142/67 H 96 12/09/20 05:06 83 28 H 119/55 L 93 12/09/20 04:36 82 29 H 130/65 95 12/09/20 04:06 81 25 H 124/61 94 12/09/20 03:36 79 29 H 108/46 L 92 12/09/20 03:27 36.6 C 12/09/20 03:06 81 27 H 115/53 L 94 12/09/20 02:36 80 27 H 118/61 93 12/09/20 02:06 79 28 H 105/50 L 95 12/09/20 01:36 74 31 H 95/42 L 12/09/20 01:01 75 28 H 97/46 L 93 12/09/20 00:31 74 31 H 95/40 L 97 12/09/20 00:09 69 18 72/32 L 98 12/09/20 00:00 36.4 C L 12/08/20 23:38 71 28 H 81/33 L 94 12/08/20 23:08 71 25 H 84/35 L 97 12/08/20 22:38 77 28 H 102/41 L 96 12/08/20 22:08 79 33 H 91/39 L 95 12/08/20 21:38 80 28 H 110/48 L 95 12/08/20 21:30 37.0 C 12/08/20 21:08 83 23 95/38 L 94 12/08/20 20:38 86 30 H 94/40 L 95 Laboratory Results Short CBC 12/09/20 12/09/20 Range/Units 01:36 04:46 WBC 9.75 8.80 (4.8-10.8) K/uL Hgb 8.8 L 8.5 L (12.0-16.0) g/dL Hct 28.7 L 27.6 L (37-47) % Plt Count 338 339 (130-400) K/uL BMP 12/09/20 12/09/20 01:36 04:46 Sodium 136 137 Potassium 5.1 5.3 H Chloride 111 H 110 H Carbon Dioxide 24 25 BUN 25 H 25 H Creatinine 1.19 1.08 Glucose 110 H 132 H Calcium 9.0 9.1 Cardiac Enzymes 12/09/20 Range/Units 01:36 Troponin I 20.000 H* (0-0.045) ng/ml (1) STEMI (ST elevation myocardial infarction) Involved coronary artery: unspecified coronary artery Qualified Code(s): I21.3 - ST elevation (STEMI) myocardial infarction of unspecified site
[2020-12-09] MEDS: ATORVASTATIN 40 MG TAB PO SCH (08:29)
[2020-12-09] MEDS: ASPIRIN 81 MG ECTAB PO SCH (08:29)
[2020-12-09] MEDS: CLOPIDOGREL BISULFATE 75 MG TAB PO SCH (08:30)
[2020-12-09] MEDS: CHOLECALCIFEROL 1,000 UNITS 25 MCG TAB PO SCH (08:30)
[2020-12-09] MEDS: PANTOprazole 40 MG TAB PO SCH (08:30)
[2020-12-09] MEDS: CYANOCOBALAMIN 500 MCG TABLET (VITAMIN B-12) PO SCH (08:30)
[2020-12-09] MEDS: METOPROLOL TARTRATE 25 MG TAB PO SCH ×2 (08:30→19:52)
[2020-12-09] MEDS ORDERED: CALCIUM GLUCONATE 10% 1,000 MG in SODIUM CHLORIDE 0.9% 50 ML IV ONE (08:30)
[2020-12-09] MEDS: FERROUS SULFATE 325 MG TAB PO SCH (08:30)
--- NOTE | 2020-12-09 09:47 | Cardiology Progress Note ---
Date of Service December 09, 2020 Assessment & Plan (1) STEMI (ST elevation myocardial infarction): Plan: s/p PCI TODD x 2 to the RCA. Echocardiogram reveals mild inferior, inferoseptal hypokinesis, right ventricular chamber size and moderate diffuse right ventricular hypokinesis suggestive of RV involvement. EKG performed this morning reveals subtle residual inferior ST elevation in leads III and aVF, however much improved compared to the initial tracing performed prior to cardiac catheterization yesterday. Subtle ongoing lateral ST elevation noted. Nonobstructive disease noted in the left coronary system on nonselective angiography. LVEF 45 to 50%. Transient hypotension noted in early am hours of 12/09/20, improved now. Continue aspirin, clopidogrel, metoprolol tartrate, atorvastatin. ACEI / ARB remains on hold due to low BP and mild hyperkalemia. EKG this am reveals evolution of inferior FL with inferior Q waves, and very mild residual ST elevation. (2) S/P TAVR (transcatheter aortic valve replacement): Plan: Echocardiogram reveals normal prosthetic function. (3) HTN (hypertension): Plan: H/o HTN. Relative hypotension noted. Holding [employer] lisinopril. (4) Hyperkalemia: Plan: SHAUN/ARB, on hold given mild hyperkalemia, 5.3 mmol/liter Administer lasix 20 mg x 1. (5) Dyslipidemia: Plan: Continue atorvastatin. (6) Pleural effusion: Plan: History of nonmalignant recurrent right pleural effusion for which patient has had multiple thoracentesis procedures, both at [facility] , and [facility] in the past. CXR 12/08 nd 12/09 reveals small to moderate right pleural effusion, chronic per past imaging. Admission and Anticipated Discharge Date Admission Date: December 07, 2020 Subjective Patient seen in cardiology follow up. She feels well. Denies chest pain, shortness of breath, or dizziness. She is sitting in the bedside chair. She remain in the ICU as a telemetry overflow patient. Telemetry reveals SR in the 80s. BP is better this am, having been borderline low yesterday. Review of Systems Review of Systems: All systems reviewed & are unremarkable except as noted in HPI & below Physical Exam Physical Exam: Temp Pulse Resp BP Pulse Ox 36.8 C 95 H 23 98/68 L 97 12/08/20 08:00 12/08/20 10:04 12/08/20 10:04 12/08/20 10:04 12/08/20 10:04 Constitutional: WD/WN, vitals as above not ill appearing Respiratory: mildly reduced breath sounds at the right base. Cardiovascular: RRR, no murmur, no edema Vessels: no JVD Neurologic: PERRL, EOMI, accommodation nl, no face palsy, no dysarthria Results & Data ([facility]) Vital Signs (Past 12 Hours) Vital Signs Temp Pulse Resp BP Pulse Ox 12/09/20 08:00 94 H 12/09/20 06:06 84 26 H 116/60 93 12/09/20 05:36 83 24 142/67 H 96 12/09/20 05:06 83 28 H 119/55 L 93 12/09/20 04:36 82 29 H 130/65 95 12/09/20 04:06 81 25 H 124/61 94 12/09/20 03:36 79 29 H 108/46 L 92 12/09/20 03:27 36.6 C 12/09/20 03:06 81 27 H 115/53 L 94 12/09/20 02:36 80 27 H 118/61 93 12/09/20 02:06 79 28 H 105/50 L 95 12/09/20 01:36 74 31 H 95/42 L 12/09/20 01:01 75 28 H 97/46 L 93 12/09/20 00:31 74 31 H 95/40 L 97 12/09/20 00:09 69 18 72/32 L 98 12/09/20 00:00 36.4 C L 12/08/20 23:38 71 28 H 81/33 L 94 12/08/20 23:08 71 25 H 84/35 L 97 12/08/20 22:38 77 28 H 102/41 L 96 12/08/20 22:08 79 33 H 91/39 L 95 Laboratory Results Cardiac Enzymes 12/08/20 12/09/20 Range/Units 10:25 01:36 Troponin I 28.200 H* 20.000 H* (0-0.045) ng/ml Coagulation 12/09/20 Range/Units 01:36 APTT 20.0 L (21.0-31.0) Seconds CBC 12/09/20 12/09/20 Range/Units 01:36 04:46 WBC 9.75 8.80 (4.8-10.8) K/uL RBC 3.12 L 2.97 L (4.2-5.4) M/uL Hgb 8.8 L 8.5 L (12.0-16.0) g/dL Hct 28.7 L 27.6 L (37-47) % Plt Count 338 339 (130-400) K/uL Neut # (Auto) 7.34 H 6.72 H (1.4-6.5) K/uL Lymph # (Auto) 1.28 1.15 L (1.2-3.4) K/uL [place] # (Auto) 0.90 H 0.73 H (0.11-0.59) K/uL Eos # (Auto) 0.17 0.12 (0-0.5) K/uL Baso # (Auto) 0.05 0.07 (0-0.2) K/uL Comprehensive Metabolic Panel 12/09/20 12/09/20 Range/Units 01:36 04:46 Sodium 136 137 (136-145) mmol/L Potassium 5.1 5.3 H (3.5-5.1) mmol/L Chloride 111 H 110 H (98-107) mmol/L Carbon Dioxide 24 25 (21-32) mmol/L BUN 25 H 25 H (7-18) mg/dl Creatinine 1.19 1.08 (0.6-1.2) mg/dl Glucose 110 H 132 H (70-99) mg/dl Calcium 9.0 9.1 (8.5-10.1) mg/dl Intake and Output 12/08/20 12/09/20 12/09/20 22:59 06:59 14:59 Intake Total 150 / 986.667 60 / 60 Output Total 300 / 300 0 / 300 Balance -300 / 686.667 150 / 686.667 60 / 60 Intake: IV 150 / 986.667 60 / 60 Albumin 25% 12.5 gm In 50 ml @ 50 / 50 50 mls/hr IV ONE ONE Rx#: [id number] Calcium Gluconate 10% 1,000 mg 60 / 60 In Sodium Chloride 0.9% 50 ml @ 240 mls/hr IV ONE ONE Rx#: [id number] Magnesium Sulfate / D5w 1 gm In 100 / 100 100 ml @ 50 mls/hr IV ONE ONE Rx#:[id number] Output: Urine 300 / 300 0 / 300 Other: Weight 52.6 kg Weight Measurement Method Built in [facility] (1) STEMI (ST elevation myocardial infarction) Involved coronary artery: unspecified coronary artery Qualified Code(s): I21.3 - ST elevation (STEMI) myocardial infarction of unspecified site
--- NOTE | 2020-12-09 09:58 | XRay Report ---
XR chest 1V portable HISTORY: 70 years-old Female sob acute shortness of breath COMPARISON: Chest radiographs 12/08/2020 TECHNIQUE: AP view of the chest FINDINGS: Cardiac silhouette is enlarged. Aortic valvular endograft. Calcified plaque of the thoracic aorta. No pneumothorax. Right greater than left layering pleural effusions with bibasilar consolidation are st able. Interval development of pulmonary vascular congestion. Indeterminate 6 mm nodular density proje cts over the right midlung which was not seen on the comparison study. Degenerative changes of the sh oulders and spine. Surgical clips of the abdominal left upper quadrant. IMPRESSION: 1. Cardiomegaly with interval development of pulmonary vascular congestion. 2. Right greater than left layering pleural effusions with bibasilar consolidation redemonstrated. ACT 112: Negative or not required by law. The above report was generated using voice recognition software. It may contain grammatical, syntax o r spelling errors. Electronically signed by: Jonathan Parnell M.D. 12/09/2020 9:57 AM
[2020-12-09] MEDS ORDERED: FUROSEMIDE 20 MG in SYRINGE 0 ML IV ONE (10:00)
[2020-12-09 10:29] LABS: Reticulocyte % 1.7 % (0.5-2.0); Reticulocytes # 0.05 10^6/uL (0.02-0.10)
[2020-12-09 11:02] LABS: Ferritin 19.9 ng/ml (8-388)
[2020-12-09 11:28] LABS: Folate (Folic Acid) 11.5 ng/ml (>5.38)
--- NOTE | 2020-12-09 16:52 | Electrocardiogram Report ---
Test Reason : Blood Pressure : / mmHG Vent. Rate : 072 BPM Atrial Rate : 072 BPM P-R Int : 188 ms QRS Dur : 088 ms QT Int : 376 ms P-R-T Axes : 028 032 -23 degrees QTc Int : 411 ms Normal sinus rhythm Low voltage QRS T wave abnormality, consider inferior ischemia Abnormal ECG When compared with ECG of 08-DEC-2020 08:38, No significant change was found Confirmed by Orlando Brown ([id number]) on 12/09/2020 4:52:18 PM Referred By: REFERRED SELF Confirmed By:Orlando Brown
[2020-12-09 16:59] LABS: BUN Creatinine Ratio 26.5 (10-20); Calcium 10.1 mg/dl (8.5-10.1); Creatinine Clr Calc Pharmacy 37.8 ml/min; Est GFR (African American) 67.3 ml/min; Potassium 5.1 mmol/L (3.5-5.1)
[2020-12-09] MEDS: DOXEPIN HCL 10 MG CAPSULE PO SCH (19:52)
[2020-12-10] MEDS: ATORVASTATIN 40 MG TAB PO SCH (08:33)
[2020-12-10] MEDS: ASPIRIN 81 MG ECTAB PO SCH (08:33)
[2020-12-10] MEDS: METOPROLOL TARTRATE 25 MG TAB PO SCH (08:34)
[2020-12-10] MEDS: FERROUS SULFATE 325 MG TAB PO SCH (08:34)
[2020-12-10] MEDS: CYANOCOBALAMIN 500 MCG TABLET (VITAMIN B-12) PO SCH (08:34)
[2020-12-10] MEDS: PANTOprazole 40 MG TAB PO SCH (08:34)
[2020-12-10] MEDS: CHOLECALCIFEROL 1,000 UNITS 25 MCG TAB PO SCH (08:34)
[2020-12-10] MEDS: CLOPIDOGREL BISULFATE 75 MG TAB PO SCH (08:34)
[2020-12-10 08:47] LABS: Basophils # (auto) 0.12 K/uL (0-0.2); Basophils % (auto) 1.4 %; Eosinophils % (auto) 4.8 %; Hematocrit (blood only) 29.7 % (37-47); Hemoglobin 9.1 g/dL (12.0-16.0); Immature Granulocytes # (auto) 0.03 K/uL (0.00-0.02); Immature Granulocytes % (auto) 0.4 %; Lymphocytes # (auto) 1.52 K/uL (1.2-3.4); Lymphocytes % (auto) 18.2 %; Mean Corpuscular Hemoglobin 27.7 pg (25-34); Mean Corpuscular Hgb Conc 30.6 g/dL (32-36); Mean Corpuscular Volume 90.5 fL (80-100); Mean Platelet Volume 10.8 fL (7.4-10.4); Monocytes # (auto) 0.67 K/uL (0.11-0.59); Neutrophils # (auto) 5.61 K/uL (1.4-6.5); Neutrophils % (auto) 67.2 %; Platelet Count 374 K/uL (130-400); RDW Coefficient of Variation 14.5 % (11.5-14.5); RDW Standard Deviation 48.1 fL (36.4-46.3); Red Blood Count 3.28 M/uL (4.2-5.4); White Blood Count 8.35 K/uL (4.8-10.8)
[2020-12-10 08:57] LABS: BUN Creatinine Ratio 23.9 (10-20); Creatinine Clr Calc Pharmacy 37.1 ml/min; Est GFR (African American) 65.6 ml/min; Est GFR (Non-African American) 56.6 ml/min; Magnesium 2.1 mg/dl (1.8-2.4); Phosphorus 3.2 mg/dl (2.5-4.9); Potassium 5.1 mmol/L (3.5-5.1)
[2020-12-10 09:07] LABS: Acanthocytes 1+; Echinocytes 1+; Ovalocytes 1+; Polychromasia 1+; Schistocytes 1+
[2020-12-10] MEDS ORDERED: METOPROLOL SUCC 50MG EXT REL TAB PO SCH (10:00)
[2020-12-10] MEDS ORDERED: FUROSEMIDE 20 MG TAB PO SCH (10:00)
[2020-12-10] MEDS ORDERED: FERROUS SULFATE 325 MG TAB PO SCH (10:00)
--- NOTE | 2020-12-10 10:03 | Cardiology Progress Note ---
Date of Service December 10, 2020 Assessment & Plan (1) STEMI (ST elevation myocardial infarction): Plan: s/p PCI TODD x 2 to the RCA. Echocardiogram reveals mild inferior, inferoseptal hypokinesis, right ventricular chamber size and moderate diffuse right ventricular hypokinesis suggestive of RV involvement. EKG performed this morning reveals subtle residual inferior ST elevation in leads III and aVF, however much improved compared to the initial tracing performed prior to cardiac catheterization yesterday. Subtle ongoing lateral ST elevation noted. Nonobstructive disease noted in the left coronary system on nonselective angiography. LVEF 45 to 50%. Transient hypotension noted in early am hours of 12/09/20, improved now. Continue aspirin, clopidogrel, metoprolol tartrate, atorvastatin. ACEI / ARB remains on hold due to low BP and mild hyperkalemia. (2) S/P TAVR (transcatheter aortic valve replacement): Plan: Echocardiogram reveals normal prosthetic function. (3) HTN (hypertension): Plan: H/o HTN. Transient relative hypotension noted, now resolved (12/10/20) Add furosemide. Transition to metoprolol succinate 50 mg daily (SURGICAL FIRST ASSISTANT dose was 25 mg daily) (4) Hyperkalemia: Plan: SHAUN/ARB, on hold given mild hyperkalemia, 5.1 mmol/liter Continue to hold SURGICAL FIRST ASSISTANT lisinopril at discharge. (5) Dyslipidemia: Plan: Continue atorvastatin. (6) Pleural effusion: Plan: History of nonmalignant recurrent right pleural effusion for which patient has had multiple thoracentesis procedures, both at [facility] , and [facility] in the past. CXR 12/08 nd 12/09 reveals small to moderate right pleural effusion, chronic per past imaging. (7) Anemia: Plan: normocytic anemia. Fe mildly low. LDH obtained as at risk for prosthetic valve hemolysis, and is mildly elevated however bilirubin normal. Supplement iron. Plan: Disposition: Stable for discharge if able to ambulate in the hallway without difficulty. [facility] (Woodson mahnaz) within 2-4 weeks. DC medications ASA 81 mg daily Clopidogrel 75 mg daily (new) Metoprolol succinate 50 mg daily (increased from 25 mg daily) Atorvastatin 40 mg daily (replaces simvastatin) furosemide 20 mg daily. Ferrous Sulfate 325 mg daily. Admission and Anticipated Discharge Date Admission Date: December 07, 2020 Subjective Pt seen in follow up. Denies angina. Did have some neck pain this am, perhaps muscular. Telemetry reveals SR in the 80s. Review of Systems Review of Systems: All systems reviewed & are unremarkable except as noted in HPI & below Physical Exam Physical Exam: Temp Pulse Resp BP Pulse Ox 36.8 C 95 H 23 98/68 L 97 12/08/20 08:00 12/08/20 10:04 12/08/20 10:04 12/08/20 10:04 12/08/20 10:04 Constitutional: WD/WN, vitals as above not ill appearing Respiratory: normal respiratory effort, lungs clear to auscultation Cardiovascular: RRR, no murmur, no edema Vessels: no JVD Neurologic: PERRL, EOMI, accommodation nl, no face palsy, no dysarthria Results & Data ([facility]) Vital Signs (Past 12 Hours) Vital Signs Temp Pulse Pulse Resp BP BP Pulse Ox 12/10/20 07:35 36.6 C 90 17 155/64 H 94 12/10/20 04:07 36.7 C 84 16 138/62 12/09/20 23:51 36.8 C 80 16 101/52 L 95 12/09/20 22:20 77 Laboratory Results Cardiac Enzymes 12/09/20 Range/Units 10:04 Lactate Dehydrogenase 311 H (84-246) U/L CBC 12/10/20 Range/Units 08:00 WBC 8.35 (4.8-10.8) K/uL RBC 3.28 L (4.2-5.4) M/uL Hgb 9.1 L (12.0-16.0) g/dL Hct 29.7 L (37-47) % Plt Count 374 (130-400) K/uL Neut # (Auto) 5.61 (1.4-6.5) K/uL Lymph # (Auto) 1.52 (1.2-3.4) K/uL Sevier # (Auto) 0.67 H (0.11-0.59) K/uL Eos # (Auto) 0.40 (0-0.5) K/uL Baso # (Auto) 0.12 (0-0.2) K/uL Comprehensive Metabolic Panel 12/09/20 12/10/20 Range/Units 16:19 08:00 Sodium 137 139 (136-145) mmol/L Potassium 5.1 5.1 (3.5-5.1) mmol/L Chloride 108 H 110 H (98-107) mmol/L Carbon Dioxide 25 23 (21-32) mmol/L BUN 26 H 24 H (7-18) mg/dl Creatinine 0.98 1.00 (0.6-1.2) mg/dl Glucose 102 H 107 H (70-99) mg/dl Calcium 10.1 10.0 (8.5-10.1) mg/dl Intake and Output 12/09/20 12/10/20 12/10/20 22:59 06:59 14:59 Intake Total 240 / 980 200 / 980 Balance 240 / 380 200 / 380 Intake: Oral 240 / 920 200 / 920 Other: # Unmeasured Voids 1 1 Weight 52.1 kg Weight Measurement Method Standing Scale (1) STEMI (ST elevation myocardial infarction) Involved coronary artery: unspecified coronary artery Qualified Code(s): I21.3 - ST elevation (STEMI) myocardial infarction of unspecified site
--- NOTE | 2020-12-10 14:50 | Hospitalist Progress Note ---
Date of Service December 10, 2020 delayed entry date of service noted above Assessment & Plan (1) STEMI (ST elevation myocardial infarction): Plan: STEMI S/P PCI TODD to RCA H/O CAD -ECHO: Mild concentric LVH. Inferior wall, inferoseptal wall hypokinetic. EF 40 to 45%. Right ventricle is mildly dilated. Right ventricular systolic function is moderately reduced. Patient has undergone previous transcatheter aortic valve implantation. No significant prosthetic regurgitation. Gradient is normal for this prosthetic aortic valve. Grade 2 diastolic dysfunction. -Nonobstructive disease of the left coronary system. Continue aspirin, Plavix, Lipitor, Metoprolol - ff up with [facility] as outpatient Hyperkalemia Received calcium gluconate, Lasix resolved Low potassium diet Anemia H/O Iron deficiency anemia, Anemia of Chronic disease Hb drop partly dilutional tyrell to IV fluids No H/O bleeding Normal reticulocyte count, folate, vitamin B12 levels Iron panel reviewed haptoglobin normal Continue iron supplements Monitor CBC Hypertension: Continue metoprolol S/P TAVR (transcatheter aortic valve replacement): In 2014 ECHO as above Disposition d/c home ff up with PCP in 1 week [facility] 2 weeks Admission and Anticipated Discharge Date Admission Date: December 07, 2020 Subjective ff up for STEMI etc seen resting in bed, comfortable in good spirits states she feels fine overall denies chest pain, dyspnea, palpitations, dizziness ambulated in the hallways with no problems no other symptoms states she is ready for discharge today Review of Systems Review of Systems: all noted and negative except for above Physical Exam Physical Exam: General- oriented x 3, not in distress, speaks in sentences with no effort or accessory muscle use Eyes- anicteric Neck- no JVD Lungs- clear breath sounds bilaterally, no rales/wheezes Heart- normal rate, regular rhythm; no murmurs Abdomen- normal bowel sounds, nondistended, soft, nontender Extremities- no pretibial edema, no calf tenderness Neuro- alert, oriented x 3; no gross focal neurologic deficits Skin- warm & dry Results & Data Results & Data ([facility]) Vital Signs (Past 12 Hours) Vital Signs Temp Pulse Pulse Resp BP BP Pulse Ox 12/10/20 12:23 36.5 C 78 18 155/69 H 97 12/10/20 08:00 80 12/10/20 07:35 36.6 C 90 17 155/64 H 94 12/10/20 04:07 36.7 C 84 16 138/62 all noted and reviewed including below (1) STEMI (ST elevation myocardial infarction) Involved coronary artery: unspecified coronary artery Qualified Code(s): I21.3 - ST elevation (STEMI) myocardial infarction of unspecified site
--- NOTE | 2020-12-10 17:00 | Electrocardiogram Report ---
Test Reason : Blood Pressure : / mmHG Vent. Rate : 082 BPM Atrial Rate : 082 BPM P-R Int : 186 ms QRS Dur : 090 ms QT Int : 370 ms P-R-T Axes : 026 029 -29 degrees QTc Int : 432 ms Normal sinus rhythm Cannot rule out Anterior infarct , age undetermined T wave abnormality, consider inferior ischemia Abnormal ECG When compared with ECG of 09-DEC-2020 00:20, Nonspecific T wave abnormality no longer evident in Lateral leads Confirmed by Orlando Brown ([id number]) on 12/10/2020 5:00:30 PM Referred By: REFERRED SELF Confirmed By:Orlando Brown
--- NOTE | 2020-12-17 16:04 | Discharge Summary ---
Date of Service December 17, 2020 Admission HPI Per Admitting Provider 70-year-old female with PMH CAD s/p TODD to RCA x 2 in 2015, aortic stenosis s/p TAVR, remote history of Hodgkin's lymphoma, remote history of breast cancer, chronic diastolic CHF, and other problems listed below who presents the ED for evaluation of chest pain. Patient reports that she was tosha some vegetables when she developed a midsternal chest pain. Reports associated nausea and diaphoresis. EMS was called and patient was brought to the ED for further evaluation. EKG showed inferior ST elevations. Heart alert was called and patient was taken to the [facility] emergently. Patient was found to have RCA 100% proximal occlusion within prior stents with significant thrombus extending throughout mid segment and minimal nonculprit vessel disease. She received TODD x 2 to proximal and mid RCA. Patient was evaluated in ICU post procedure. She reports that she is currently chest pain-free. Patient reports she felt very fatigued last evening. Otherwise has been feeling well recently. No other recent illnesses, fevers, chills. Denies shortness of breath. No lightheadedness, dizziness, syncopal event. Reports one episode of vomiting in the ambulance, no abdominal pain or diarrhea. Denies urinary symptoms. Admission Exam Per Admitting Provider Vitals signs as noted above General Appearance:Moderately built and nourished, no apparent distress Head: normocephalic, Atraumatic Eyes: normal inspection, EOMI Neck: supple, Trachea midline Respiratory/Chest: Normal breath sounds, CTA, No accessory muscle use, +B/L Mast ectomy Cardiovascular: S1, S2, No murmur Abdomen/GI:Soft, Non tender, Bowel sounds present Extremities/Musculoskeletal:normal inspection, no edema Neurologic/Psych:AAOX3, grossly no focal neurological deficits Skin: normal color, warm, Well healed post surgical scars Principal Diagnosis ST ELEVATION MYOCARDIAL INFARCTION Discharge Exam General- oriented x 3, not in distress, speaks in sentences with no effort or accessory muscle use Eyes- anicteric Neck- no JVD Lungs- clear breath sounds bilaterally, no rales/wheezes Heart- normal rate, regular rhythm; no murmurs Abdomen- normal bowel sounds, nondistended, soft, nontender Extremities- no pretibial edema, no calf tenderness Neuro- alert, oriented x 3; no gross focal neurologic deficits Skin- warm & dry Discharge Data Allergies Allergy/AdvReac Type Severity Reaction Status Date / Time No Known Allergies Allergy Unverified 12/10/11 00:58 Consultations 12/07/20 14:38 ED Decision to Admit Stat 12/07/20 17:12 Consult Cardiac Rehabilitation Routine Consult Dining Room Coordinator Routine 12/07/20 17:37 Consult Cardiology Routine Procedures Performed Operation Date: 12/07/20 14:00 Actual Procedures p Cath, Left with Cors and Vent - Rajinder Mckeon MD s Drug Eluting Stent SGl Vessel - Rajinder Mckeon MD s Cineradiography w/Routine Exam - Rajinder Mckeon MD Ordered Studies 12/07/20 14:18 CL Cath Imgs for PACS use only Stat Hospital Course (1) STEMI (ST elevation myocardial infarction): STEMI S/P PCI TODD to RCA H/O CAD -ECHO: Mild concentric LVH. Inferior wall, inferoseptal wall hypokinetic. EF 40 to 45%. Right ventricle is mildly dilated. Right ventricular systolic function is moderately reduced. Patient has undergone previous transcatheter aortic valve implantation. No significant prosthetic regurgitation. Gradient is normal for this prosthetic aortic valve. Grade 2 diastolic dysfunction. -Nonobstructive disease of the left coronary system. Continue aspirin, Plavix, Lipitor, Metoprolol - ff up with [facility] as outpatient Hyperkalemia Received calcium gluconate, Lasix resolved Low potassium diet Anemia H/O Iron deficiency anemia, Anemia of Chronic disease Hb drop partly dilutional tyrell to IV fluids No H/O bleeding Normal reticulocyte count, folate, vitamin B12 levels Iron panel reviewed haptoglobin normal Continue iron supplements Monitor CBC Hypertension: Continue metoprolol S/P TAVR (transcatheter aortic valve replacement): In 2014 ECHO as above Disposition d/c home ff up with PCP in 1 week [facility] 2 weeks Total Time Total Time Spent Total Time Spent (In Minutes): > 30 MINUTES Discharge Plan Discharge Items Patient Disposition: Home - Self-Care Reason For Visit: HEART ALERT Discharge Diagnosis: ST elevation myocardial infarction Status post drug-eluting stent placement to right coronary artery Activity: As commented below Activity Comment: No heavy exertion, resume activity gradually as tolerated Lifting: Wait until after follow-up appointment Exercise/Sports: Wait until after follow-up appointment Driving/Machine Use: No driving until reevaluated and allowed by primary care physician Non-emergency contact: Primary Care Provider and [facility] Call non-emergency contact if: you have any medication questions, your symptoms worsen, your pain is not controlled, your pain is worsening, your pain is un usual for you, your pain is concerning for you, you have a fever, your wound has increased redness, your wound has increased drainage and your wound pain has increased Follow-up/Referrals: Que Morrison DO [[facility]] - Tash Brownlee MD [Primary Care Provider] - (Date & Time 12/16/2020 11:00 AM Provider Tash Brownlee MD Department [facility] ) Diet: Heart Healthy Karson Attending Provider Instructions: Please review your new medication list and follow instructions carefully. Low potassium diet- avoid bananas, oranges, potatoes, tomatoes Follow-up with primary care physician as outlined above. Follow-up with newscast producer Dr. Que Morrison in 2 weeks. His clinic will be calling you for the appointment. Contact information outlined above. Who to Call and When: Medical Emergencies: If at any time you feel your situation is an emergency, please call 911 immediately. Call 911 immediately or go to your nearest Emergency Room if you experience any of the following: Warning Signs and Symptoms of a Heart Attack * Chest pain that is not relieved by medication * Shortness of breath Karson Surgeon Chief Provider Instructions: Disposition: Stable for discharge if able to ambulate in the hallway without difficulty. [facility] (Tamiko joya) within 2-4 weeks. DC medications ASA 81 mg daily Clopidogrel 75 mg daily (new) Metoprolol succinate 50 mg daily (increased from 25 mg daily) Atorvastatin 40 mg daily (replaces simvastatin) furosemide 20 mg daily. Ferrous Sulfate 325 mg daily. Pt to be discharged off of lisinopril. Pending Studies at Discharge: Yes Studies:: repeat potassium level on ff up with your PCP in 1 week Stand-Alone Forms: My [employer], Smoking Cessation Medications and DC Order Prescriptions: New clopidogrel 75 mg Tablet 75 mg PO QAM Qty: 30 RF: 2 atorvastatin 40 mg Tablet 40 mg PO QAM Qty: 30 RF: 2 metoprolol succinate 50 mg Tablet Extended Release 24 Hr 50 mg PO QAM Qty: 30 RF: 2 aspirin 81 mg Tablet,Delayed Release (Dr/Ec) 81 mg PO QAM Qty: 30 RF: 2 furosemide 20 mg Tablet 20 mg PO QAM Qty: 30 RF: 2 pantoprazole 40 mg Tablet,Delayed Release (Dr/Ec) 40 mg PO QAM Qty: 30 RF: 2 Continued cyanocobalamin (vitamin B-12) 1,000 mcg Tablet 1,000 mcg PO DAILY RF: 0 doxepin 10 mg capsule 10 mg PO HS RF: 0 ascorbic acid (vitamin C) [Vitamin C] 500 mg Tablet 500 mg PO DAILY RF: 0 cholecalciferol (vitamin D3) [Vitamin D3] 25 mcg (1,000 unit) Tablet 25 mcg PO DAILY RF: 0 Changed ferrous sulfate 325 mg (65 mg iron) Tablet 325 mg PO BID Qty: 0 RF: 0 Discontinued lisinopril 20 mg tablet 20 mg PO DAILY RF: 0 simvastatin 40 mg tablet 40 mg PO HS RF: 0 aspirin 81 mg Tablet 81 mg PO DAILY RF: 0 metoprolol succinate 25 mg tablet extended release 24 hr 25 mg PO DAILY RF: 0 Discharge Orders: Discharge Order (Routine); Ordered 12/10/20 Ordered By: Ady Bell/Other Patient Handouts: Eating Heart-Healthy Foods Admission Data Admit Date/Time: 12/07/20 17:12 Attending Provider: Ady Castellanos Admit Provider: Rajinder Mckeon Primary Care Provider: Tash Brownlee Other Providers: Rajinder Mckeon ; Benito Smart ; Alvaro Stephenson ; Stanislav Davis Other Interventions: Discharge Summary Assessment (RN) Last Done: 12/10/20 15:03
== END 2020-12-10 16:24 | disposition home or self-care (01) | DRG 247 ==
LOC: ED 14:12 → CC 14:28 → 1E 14:28 → OBSVTOIN 14:38 → SUATTDRO 17:12 → 2S 12-09 18:59